=== PATIENT | female | born 1965 | race Caucasian/White ===

== ENCOUNTER 2016-04-17 14:14 | Emergency (ER) | payer MEDICAID ==
[~2016-04-17] VITALS: Wt 86.4 kg
[~2016-04-17 14:14] MED LIST: ALBU8.5H3 INH; IBUP-1542 PO; MTF1000T PO; PRED20TA PO
--- NOTE | 2016-04-17 15:39 | RADRPT ---
PROCEDURE: XR Chest. CLINICAL INDICATION: Cough TECHNIQUE: Chest PA. COMPARISON: 03/02/2016 FINDINGS: The mediastinal structures are unremarkable. The heart is normal in size and configuration. The pu lmonary vascularity is normal. The lung martínez are unremarkable. No consolidation is identified. The pleural spaces are unremarkable. The axial skeleton is unremarkable. IMPRESSION: No active intrathoracic disease. RPTAT: HGDB .Rich Pal MD, MD Date Time Electronically viewed and signed by .Rich Pal MD, on 04/17/2016 15:39 .B/
--- NOTE | 2016-04-17 15:44 | ERD ---
ER Documentation Chief Complaint Date/Time DATE: 04/17/16 TIME: 15:20 Chief Complaint HPI This patient is a 50-year-old female with a history of diabetes, hypertension, and asthma presenting to the emergency department for cough which is been ongoing intermittently for 4 days. She states the cough is worse at night. She also reports mid bilateral back pain every time she coughs. She denies any fevers, chills, nausea, vomiting, diarrhea, urinary symptoms or other symptoms at this time. There are no other alleviating or exacerbating factors at this time. ROS All systems reviewed and are negative except as per history of present illness. Medications Home Meds Active Scripts Benzonatate* (Benzonatate*) 100 Mg Capsule, 100 MG PO TID Y for COUGH for 20 Days, CAP Prov:MURALI BURTON PA-C 04/17/16 Albuterol Sulfate* (Ventolin HFA*) 18 Gm Hfa.aer.ad, 2 PUFF INHALATION Q4H, #1 INHALER Prov:MURALI BURTON PA-C 04/17/16 Prednisone* (Prednisone*) 20 Mg Tab, 40 MG PO DAILY for 5 Days, #10 TAB Prov:MURALI BURTON PA-C 04/17/16 Ibuprofen* (Ibuprofen*) 600 Mg Tablet, 600 MG PO Q8 for PAIN AND/OR INFLAMMATION , #30 TAB Prov:CHIP MCNEILL MD 03/02/16 Prednisone* (Prednisone*) 20 Mg Tab, 40 MG PO DAILY for 4 Days, TAB Prov:CHIP MCNEILL MD 03/02/16 Albuterol Sulfate* (Proair HFA*) 8.5 Gm Hfa.aer.ad, 2 PUFF INH Q6H Y for WHEEZING AND SOB, #1 INHALER Prov:CHIP MCNEILL MD 03/02/16 Reported Medications Metformin* (Glucophage*) 1,000 Mg Tablet, 1000 MG PO BID, TAB 11/30/14 Allergies Allergies: Coded Allergies: No Known Allergy (Unverified , 03/02/16) PMhx/Soc History of Surgery: Yes ( ) Anesthesia Reaction: No Hx Neurological Disorder: No Hx Respiratory Disorders: Yes (ASTHMA ) Hx Cardiac Disorders: Yes (HTN, CHOLESTEROL) Hx Psychiatric Problems: No Hx Miscellaneous Medical Probl: Yes (DIABETES ) Hx Alcohol Use: No Hx Substance Use: No Hx Tobacco Use: No Smoking Status: Never smoker FmHx Noncontributory for chief complaint Physical Exam Vitals Vital Signs Date Time Temp Pulse Resp B/P Pulse Ox O2 Delivery O2 Flow Rate FiO2 04/17/16 14:19 98.4 103 20 182/88 97 Physical Exam INITIAL VITAL SIGNS: Reviewed by me. GENERAL: Alert and interactive. No acute distress. HEAD: Head is normocephalic and atraumatic. EYES: EOMI. No scleral icterus. No conjunctival injection. ENT: Moist mucosa. NECK: Supple. Full range of motion. BACK: There is no CVA tenderness or midline tenderness to palpation RESPIRATORY: Shallow inspiratory effort. Mild inspiratory wheezing in bilateral upper lung martínez. There are no crackles or rhonchi noted. CV: Regular rate and rhythm. Normal S1 S2. No S3 or S4. No murmurs. ABDOMEN: Obese, soft, non-distended, non-tender. No guarding. No rebound. No masses. EXTREMITIES: No deformity. SKIN: Warm and dry. NEUROLOGIC: Alert and oriented x 4. Speech is normal. Moves all extremities equally. No motor or sensory deficits noted. Procedures/MDM PROCEDURE: XR Chest. CLINICAL INDICATION: Cough TECHNIQUE: Chest PA. COMPARISON: 03/02/2016 FINDINGS: The mediastinal structures are unremarkable. The heart is normal in size and configuration. The pulmonary vascularity is normal. The lung martínez are unremarkable. No consolidation is identified. The pleural spaces are unremarkable. The axial skeleton is unremarkable. IMPRESSION: No active intrathoracic disease. MDM: 50-year-old female presenting to the emergency department for cough for 4 days. Additionally she reports a pain in her mid back bilaterally when taking a deep breath. I have ordered a chest x-ray which shows no active intrathoracic disease. I believe the patient's symptoms are consistent with acute viral syndrome as well as asthma exacerbation. I believe it is reasonable to prescribe a short course of corticosteroids for the asthma flare. The patient will also be treated with a refill of her albuterol inhaler. The patient's blood pressure was slightly elevated in the department, which was most likely due to her pain, but she was additionally advised to follow up with her PMD for better management of this issue. The patient is in agreement with the diagnosis and the plan. Her questions and concerns of been addressed. Departure Diagnosis: Primary Impression: Cough Additional Impression: Asthma exacerbation Condition: Stable Patient Instructions: Cough, Chronic, Uncertain Cause, (Adult) Additional Instructions: No mas mejor en 2-3 ross, regresar. Mas peor en 24 horas, regresear rapidamente. Ir a doctor primario in 5-7 ross. Usar instrucciones cuando marisabel medicamento. MURALI BURTON PA-C Apr 17, 2016 15:30
[2016-04-17] MEDS ORDERED: PRED20TA PO (15:45)
[2016-04-17] MEDS ORDERED: ALBU18HF INHALATION (15:45)
[2016-04-17] MEDS ORDERED: BENZ-5 PO (15:52)
== END 2016-04-17 15:55 | disposition home or self-care (01) ==
LOC: FTE 14:14
DX: R05 Cough (principal); J45.901 Unspecified asthma with (acute) exacerbation; E11.9 Type 2 diabetes mellitus without complications; I10 Essential (primary) hypertension; Z79.84 Long term (current) use of oral hypoglycemic drugs
CPT/HCPCS: 71010

== ENCOUNTER 2016-05-05 10:45 | Emergency (ER) | payer MEDICAID ==
[~2016-05-05] VITALS: Wt 104.0 kg
[~2016-05-05 10:45] MED LIST changes: +ALBU18HF INHALATION; +BENZ-5 PO
[2016-05-05 10:50] VITALS: Wt 104.0 kg
[2016-05-05] MEDS ORDERED: ALBUTEROL 0.5% (NEB) 2.5 MG/0.5 ML AMP HHN STA (12:26)
[2016-05-05] MEDS ORDERED: IPRATROPIUM (NEB) 0.5 MG/2.5 ML AMP HHN ONE (12:30)
[2016-05-05] MEDS ORDERED: DEXAMETHASONE 10 MG/ML 1 ML INJ PO ONE (12:30)
[2016-05-05] MEDS ORDERED: AZIT250T94 PO (13:36)
[2016-05-05] MEDS ORDERED: MED4DP PO (13:36)
[2016-05-05] MEDS ORDERED: D-ME473S18 PO (13:36)
[2016-05-05] MEDS ORDERED: ALBU8.5H3 INH (13:37)
[2016-05-05 13:55] VITALS: BP 152/78; PULSE 78; RESP 18
--- NOTE | 2016-05-05 14:03 | ERD ---
ER Documentation Chief Complaint Date/Time DATE: 05/05/16 TIME: 13:59 Chief Complaint COUGH AND STUFFY NOSE FOR 1 WEEK. NO DISTRESS. NO RECENT FEVERS HPI This is a 50-year-old female presents to the ER with the productive cough for the last week. She states she's been wheezing a lot at night, she does not have a history of asthma. Patient denies any fevers or chills. She denies any chest pain however admits to shortness of breath secondary to chest congestion and stuffy nose. She tried taking xjyf-sga-svumtdc medications however they have not worked. There are no sick contacts at home. ROS 12 point review of systems was done, all negative except per HPI. Medications Home Meds Active Scripts Albuterol Sulfate* (Proair HFA*) 8.5 Gm Hfa.aer.ad, 2 PUFF INH Q4, #1 INHALER Prov:ROSSI STOVALL 05/05/16 Dextromethorphan Hb-Promethazine Hcl (Promethazine DM Syrup) 473 Ml Syrup, 10 ML PO Q6H Y for COUGH, #4 OZ Prov:ROSSI STOVALL 05/05/16 Methylprednisolone* (Medrol* DOSE PACK) 4 Mg/Dose-Pack Tab.ds.pk, 4 MG PO . DIRECTED for 6 Days, PACKET Prov:ROSSI STOVALL 05/05/16 Azithromycin* (Zithromax*) 250 Mg Tablet, 250 MG PO .ZPACK DIRECTED, #6 TAB TAKE 500 MG (2 TABS) THE FIRST DAY THEN 250 MG (1 TAB) DAYS 2-5 Prov:ROSSI STOVALL 05/05/16 Benzonatate* (Benzonatate*) 100 Mg Capsule, 100 MG PO TID Y for COUGH for 20 Days, CAP Prov:MURALI BURTON PA-C 04/17/16 Albuterol Sulfate* (Ventolin HFA*) 18 Gm Hfa.aer.ad, 2 PUFF INHALATION Q4H, #1 INHALER Prov:MURALI BURTON PA-C 04/17/16 Prednisone* (Prednisone*) 20 Mg Tab, 40 MG PO DAILY for 5 Days, #10 TAB Prov:MURALI BURTON PA-C 04/17/16 Ibuprofen* (Ibuprofen*) 600 Mg Tablet, 600 MG PO Q8 for PAIN AND/OR INFLAMMATION , #30 TAB Prov:CHIP MCNEILL MD 03/02/16 Prednisone* (Prednisone*) 20 Mg Tab, 40 MG PO DAILY for 4 Days, TAB Prov:CHIP MCNEILL MD 03/02/16 Albuterol Sulfate* (Proair HFA*) 8.5 Gm Hfa.aer.ad, 2 PUFF INH Q6H Y for WHEEZING AND SOB, #1 INHALER Prov:CHIP MCNEILL MD 03/02/16 Reported Medications Metformin* (Glucophage*) 1,000 Mg Tablet, 1000 MG PO BID, TAB 11/30/14 Allergies Allergies: Coded Allergies: No Known Allergy (Unverified , 03/02/16) PMhx/Soc History of Surgery: Yes ( ) Anesthesia Reaction: No Hx Neurological Disorder: No Hx Respiratory Disorders: Yes (ASTHMA ) Hx Cardiac Disorders: Yes (HTN, CHOLESTEROL) Hx Psychiatric Problems: No Hx Miscellaneous Medical Probl: Yes (DIABETES ) Hx Alcohol Use: No Hx Substance Use: No Hx Tobacco Use: No Smoking Status: Never smoker Physical Exam Vitals Vital Signs Date Time Temp Pulse Resp B/P Pulse Ox O2 Delivery O2 Flow Rate FiO2 05/05/16 13:55 78 18 152/78 98 Room Air 05/05/16 12:42 69 20 97 21 05/05/16 10:50 98.9 100 22 173/88 97 Physical Exam GENERAL: The patient is well-developed, well-nourished, in no acute distress. NECK: Cervical spine is non tender with no step off. Supple, no nuchal rigidity HEENT: Atraumatic. Pupils equal, round and reactive to light. Extraocular muscles are grossly intact. Conjunctivae pink, no discharge. Bilateral tympanic membranes are clear with no evidence of erythema, effusion or dulling of the light reflex. Tonsilar erythema with no exudates or uvular deviation. Clear rhinorrhea. RESPIRATORY: Expiratory wheezes in all lung martínez. No rales no rhonchi no crackles. HEART: Regular rate and rhythm. No murmurs, clicks, rubs or gallops. EXTREMITIES: No clubbing or cyanosis. Full range of motion. Grossly neurovascularly intact. NEUROLOGIC: Alert and oriented. Cranial nerves II through XII are intact. SKIN: There is no rash. The skin is warm and dry. Results 24 hrs Current Medications Medications (Trade) Dose Ordered Sig/Molly Route PRN Reason Start Time Stop Time Status Last Admin Dose Admin Albuterol (Proventil 0.5% (Neb)) 5 mg ONCE STAT HHN 05/05/16 12:26 05/05/16 12:28 DC 05/05/16 12:39 Ipratropium [place] (Atrovent 0.02% (Neb)) 0.5 mg ONCE ONCE HHN 05/05/16 12:30 05/05/16 12:31 DC 05/05/16 12:39 Dexamethasone (Decadron) 10 mg ONCE ONCE PO 05/05/16 12:30 05/05/16 12:31 DC 05/05/16 13:20 Procedures/MDM Differential diagnosis includes but is not limited to; Viral URI, allergic rhinitis, bronchitis, pertussis,pneumonia. Patient will be treated for bacterial bronchitis and will be given antibiotics. Patient's wheezing was resolved after nebulizing treatment and she felt significantly better. Clinical suspicion for pneumonia is low as patient appears well, is not hypoxic or in any respiratory distress. Additionally, patients physical examination is benign. Plan was discussed with patient they understand and agree. Patient needs to follow up with PCP in 1-2 days or return to ER sooner if symptoms worsen. Departure Diagnosis: Primary Impression: Bronchitis Condition: Stable Patient Instructions: Bronchitis With Wheezing (Adult) Additional Instructions: Llame al doctor MAANA y ovi joaquina BUDDY PARA DENTRO DE 1-2 AGUIRRE.Dgale a la secretaria que nosotros le instruimos hacer esta buddy.Avise o llame si conde condicin se empeora antes de la buddy. Regresa aqui si peor o no mejor. ROSSI STOVALL May 05, 2016 14:03
== END 2016-05-05 13:56 | disposition home or self-care (01) ==
LOC: FTE 10:45
DX: J20.9 Acute bronchitis, unspecified (principal); J45.909 Unspecified asthma, uncomplicated; I10 Essential (primary) hypertension; E11.9 Type 2 diabetes mellitus without complications; Z79.84 Long term (current) use of oral hypoglycemic drugs
CPT/HCPCS: 94664; J1100; Z7502; Z7610

== ENCOUNTER 2016-09-18 15:40 | Emergency (ER) | payer MEDICAID ==
[~2016-09-18] VITALS: Ht 157.5 cm; Wt 110.0 kg
[~2016-09-18 15:40] MED LIST changes: +AZIT250T94 PO; +D-ME473S18 PO; +MED4DP PO
[2016-09-18 15:43] VITALS: Ht 157.5 cm; Wt 110.0 kg
[2016-09-18 16:33] VITALS: BP 181/105; PULSE 110; RESP 20; TEMP 98.2
[2016-09-18] MEDS ORDERED: ALBU18HF INHALATION (16:33)
[2016-09-18] MEDS ORDERED: HYDR-3652 PO (16:33)
[2016-09-18] MEDS ORDERED: PRED20TA PO (16:33)
--- NOTE | 2016-09-18 16:37 | ERD ---
ER Documentation Chief Complaint Date/Time DATE: 09/18/16 TIME: 16:35 Chief Complaint Complains of SOB hx of Asthma HPI 50-year-old female history of asthma. home care consultant use. The patient presents with several days of cough that is worse at night is dry and nonproductive. She states this feels like her asthma. She denies any fevers or chills, no chest pain, no significant shortness of breath. Blood pressure noted to be elevated though patient describes compliance with her blood pressure medication. Again no chest pain no headache. ROS All systems reviewed and are negative except as per history of present illness. Medications Home Meds Active Scripts Hydrocodone Bit/Homatrop Me-Br ([place] 5-1.5 mg Tablet) 1 Each Tablet, 1 EACH PO TID Y for cough/pain, #10 TAB Prov:INOCENTE SNELL MD 09/18/16 Albuterol Sulfate* (Ventolin HFA*) 18 Gm Hfa.aer.ad, 2 PUFF INHALATION Q4H, #1 INHALER Prov:INOCENTE SNELL MD 09/18/16 Prednisone* (Prednisone*) 20 Mg Tab, 40 MG PO DAILY for 5 Days, TAB Prov:INOCENTE SNELL MD 09/18/16 Albuterol Sulfate* (Proair HFA*) 8.5 Gm Hfa.aer.ad, 2 PUFF INH Q4, #1 INHALER Prov:ROSSI STOVALL 05/05/16 Dextromethorphan Hb-Promethazine Hcl (Promethazine DM Syrup) 473 Ml Syrup, 10 ML PO Q6H Y for COUGH, #4 OZ Prov:ROSSI STOVALL 05/05/16 Methylprednisolone* (Medrol* DOSE PACK) 4 Mg/Dose-Pack Tab.ds.pk, 4 MG PO . DIRECTED for 6 Days, PACKET Prov:ROSSI STOVALL 05/05/16 Azithromycin* (Zithromax*) 250 Mg Tablet, 250 MG PO .ZPACK DIRECTED, #6 TAB TAKE 500 MG (2 TABS) THE FIRST DAY THEN 250 MG (1 TAB) DAYS 2-5 Prov:ROSSI STOVALL 05/05/16 Benzonatate* (Benzonatate*) 100 Mg Capsule, 100 MG PO TID Y for COUGH for 20 Days, CAP Prov:MURALI BURTON PA-C 04/17/16 Albuterol Sulfate* (Ventolin HFA*) 18 Gm Hfa.aer.ad, 2 PUFF INHALATION Q4H, #1 INHALER Prov:MURALI BURTON PA-C 04/17/16 Prednisone* (Prednisone*) 20 Mg Tab, 40 MG PO DAILY for 5 Days, #10 TAB Prov:MURALI BURTON PA-C 04/17/16 Ibuprofen* (Ibuprofen*) 600 Mg Tablet, 600 MG PO Q8 for PAIN AND/OR INFLAMMATION , #30 TAB Prov:CHIP MCNEILL MD 03/02/16 Prednisone* (Prednisone*) 20 Mg Tab, 40 MG PO DAILY for 4 Days, TAB Prov:CHIP MCNEILL MD 03/02/16 Albuterol Sulfate* (Proair HFA*) 8.5 Gm Hfa.aer.ad, 2 PUFF INH Q6H Y for WHEEZING AND SOB, #1 INHALER Prov:CHIP MCNEILL MD 03/02/16 Reported Medications Metformin* (Glucophage*) 1,000 Mg Tablet, 1000 MG PO BID, TAB 11/30/14 Allergies Allergies: Coded Allergies: No Known Allergy (Unverified , 03/02/16) PMhx/Soc History of Surgery: Yes ( ) Anesthesia Reaction: No Hx Neurological Disorder: No Hx Respiratory Disorders: Yes (ASTHMA ) Hx Cardiac Disorders: Yes (HTN, CHOLESTEROL) Hx Psychiatric Problems: No Hx Miscellaneous Medical Probl: Yes (DIABETES ) Hx Alcohol Use: No Hx Substance Use: No Hx Tobacco Use: No Smoking Status: Never smoker FmHx Family History: No diabetes Physical Exam Vitals Vital Signs Date Time Temp Pulse Resp B/P Pulse Ox O2 Delivery O2 Flow Rate FiO2 09/18/16 16:33 98.2 110 20 181/105 98 Room Air 09/18/16 15:43 115 20 201/106 97 Physical Exam General: Well developed, well nourished, no acute distress Head: Normocephalic, atraumatic. Eyes: Pupils equally reactive, EOM intact ENT: Moist mucous membranes Neck: Supple, no lymphadenopathy Respiratory: Lungs clear bilaterally, no distress Cardiovascular: RRR, no murmurs, rubs, or gallops Abdominal: Soft, non-tender, non-distended, no peritoneal signs : Deferred MSK: No edema, no unilateral swelling, 5/5 strength Neurologic: Alert and oriented, moving all extremities, normal speech, no focal weakness, no cerebellar signs Skin: No rash Psych: Normal mood Procedures/MDM The patient's clinical presentation is very consistent with an acute viral syndrome with mild asthma exacerbation. The patient will benefit from a short course of steroids, inhaler. No indication for chest x-ray or antibiotics. Patient's blood pressure was elevated (>120/80) but appears stable without evidence of hypertensive emergency or urgency. The patient was counseled about the risks of hypertension and urged to pursue outpatient monitoring and therapy within a week with their primary care physician. Blood pressure improved without intervention. The patient does not exhibit any clinical signs or symptoms concerning for serious bacterial infection or systemic illness. Based on history and clinical exam findings the patient does not appear to have evidence of pneumonia, strep pharyngitis, urinary tract infection, bacteremia, sepsis, or meningitis. For these reasons I do not believe it is necessary to obtain laboratory testing or diagnostic imaging. I believe it would be appropriate for symptom control, and close outpatient primary care follow-up. We discussed follow up with the patient's primary care doctor within 24 to 48 hours as needed. We also discussed return to the emergency room for worsening symptoms or worsening condition. Discharge Medications: Albuterol, prednisone, Hycodan We discussed the use of narcotics including avoidance of operating heavy machinery and driving as well as its addictive properties. Departure Diagnosis: Primary Impression: Asthma exacerbation Additional Impressions: Hypertension Hypertension type: essential hypertension Qualified Code: I10 - Essential hypertension Viral URI with cough Condition: Stable Patient Instructions: High Blood Pressure (Hypertension), Asthma, Acute (Adult) Referrals[facility] Usted se hurtado hecho un examen mdico de control que le indica que no est en joaquina condicin que requiera tratamiento urgente en el Departamento de Emergencia. Un estudio ms profundo y el tratamiento de conde condicin pueden esperar sin ningn riesgo hasta que usted sea atendida/o en el consultorio de conde mdico o joaquina cl yovana. Es responsabilidad suya arreglar joaquina buddy para el seguimiento del matt. MANEJO DE CONDICIONES NO URGENTES EN EL FUTURO 1) Si usted tiene un mdico de atencin primaria: Usted debera llamar a conde mdico de atencin primaria antes de venir al departamento de emergencia. Despus de las horas de consultorio, conde doctor o conde asociado/a est disponible por telfono. El mdico o enfermero de ladonna en el servicio telefnico puede asesorarle por adán medio para atender el problema, o matt contrario se puede programar joaquina buddy. 2) Si usted no tiene un mdico de atencin primaria: Llame al mdico o clnica de referencia que aparece abajo vera las horas de consultorio para hacer joaquina buddy para que le vean. CLINICAS: [place] [id number] [phone] [facility] [phone] [facility] [phone] [address] [facility]. [facility] [phone] [facility]. [place] [id number] [phone] [facility]. [phone] [address] [facility] () [place] se hurtado hecho un examen mdico de control que le indica que no est en joaquina condicin que requiera tratamiento urgente en el Departamento de Emergencia. Un estudio ms profundo y el tratamiento de conde condicin pueden esperar sin ningn riesgo hasta que usted sea atendida/o en el consultorio de conde mdico o joaquina cl yovana. Es responsabilidad suya arreglar joaquina buddy para el seguimiento del matt. MANEJO DE CONDICIONES NO URGENTES EN EL FUTURO 1) Si usted tiene un mdico de atencin primaria: Usted debera llamar a conde mdico de atencin primaria antes de venir al departamento de emergencia. Despus de las horas de consultorio, conde doctor o conde asociado/a est disponible por telfono. El mdico o enfermero de ladonna en el servicio telefnico puede asesorarle por adán medio para atender el problema, o matt contrario se puede programar joaquina buddy. 2) Si usted no tiene un mdico de atencin primaria: Llame al mdico o condado institucions de referencia que aparece abajo vera las horas de consultorio para hacer joaquina buddy para que le vean. SI USTED NO PUEDE PAGAR PARA LUCERO UN MEDICO puede ir a: [facility] [address] [place] [address] [facility] [address] [place] [address] LOCATED WITHIN [facility] [address] [place] [address] [address]A [facility] [address] [place], [place] [id number] Additional Instructions: Llame al doctor nombrado abajo (Referral Sources) MAANA y ovi joaquina BUDDY PARA DENTRO DE JOAQUINA SEMANA. Dgale a la secretaria que nosotros le instruimos hacer esta buddy.Avise o llame si conde condicin se empeora antes de la buddy. INOCENTE SNELL MD Sep 18, 2016 16:37
== END 2016-09-18 16:38 | disposition home or self-care (01) ==
LOC: E/R 15:40
DX: J45.901 Unspecified asthma with (acute) exacerbation (principal); I10 Essential (primary) hypertension; J06.9 Acute upper respiratory infection, unspecified; R05 Cough; E11.9 Type 2 diabetes mellitus without complications; Z79.84 Long term (current) use of oral hypoglycemic drugs
CPT/HCPCS: 99284

== ENCOUNTER 2016-11-29 11:21 | Emergency (ER) | payer MEDICAID ==
[~2016-11-29] VITALS: Wt 84.1 kg
[~2016-11-29 11:21] MED LIST changes: +HYDR-3652 PO
[2016-11-29] MEDS ORDERED: IPRATROPIUM (NEB) 0.5 MG/2.5 ML AMP NEB STA (11:58)
[2016-11-29] MEDS ORDERED: predniSONE 20 MG TAB PO STA (11:58)
[2016-11-29] MEDS ORDERED: ALBUTEROL 0.083% (NEB) 2.5 MG/3 ML AMP NEB STA (11:58)
[2016-11-29] MEDS ORDERED: ALBUTEROL 0.083% (NEB) 2.5 MG/3 ML AMP HHN STA (13:24)
[2016-11-29] MEDS ORDERED: IPRATROPIUM (NEB) 0.5 MG/2.5 ML AMP HHN ONE (13:30)
[2016-11-29] MEDS ORDERED: ALBU8.5H3 INH (14:52)
[2016-11-29] MEDS ORDERED: ADV25050 INHALATION (14:53)
--- NOTE | 2016-11-29 15:01 | ERD ---
ER Documentation Chief Complaint Date/Time DATE: 11/29/16 TIME: 14:54 Chief Complaint asthma flare up x3 days, inhaler not helping HPI This 51-year-old female who presents emergency department today complaining of asthma exacerbation for the past 3 days. Patient states that she has a cough that is worse at night. States that she uses her inhaler and it is not helping at this time. Denies any fevers or chills. Denies any recent travel. ROS All systems reviewed and are negative except as per history of present illness. Medications Home Meds Active Scripts Salmeterol Xinaf/Fluticasone* (Advair*) 250-50 Diskus Inhaler, 1 INH INHALATION BID, #1 INHALER Prov:YURIY MARQUIS PA-C 11/29/16 Albuterol Sulfate* (Proair HFA*) 8.5 Gm Hfa.aer.ad, 2 PUFF INH Q4, #1 INHALER Prov:YURIY MARQUIS PA-C 11/29/16 Hydrocodone Bit/Homatrop Me-Br (Tussigon 5-1.5 mg Tablet) 1 Each Tablet, 1 EACH PO TID Y for cough/pain, #10 TAB Prov:INOCENTE SNELL MD 09/18/16 Albuterol Sulfate* (Ventolin HFA*) 18 Gm Hfa.aer.ad, 2 PUFF INHALATION Q4H, #1 INHALER Prov:INOCENTE SNELL MD 09/18/16 Prednisone* (Prednisone*) 20 Mg Tab, 40 MG PO DAILY for 5 Days, TAB Prov:INOCENTE SNELL MD 09/18/16 Albuterol Sulfate* (Proair HFA*) 8.5 Gm Hfa.aer.ad, 2 PUFF INH Q4, #1 INHALER Prov:ROSSI STOVALL 05/05/16 Dextromethorphan Hb-Promethazine Hcl (Promethazine DM Syrup) 473 Ml Syrup, 10 ML PO Q6H Y for COUGH, #4 OZ Prov:ROSSI STOVALL 05/05/16 Methylprednisolone* (Medrol* DOSE PACK) 4 Mg/Dose-Pack Tab.ds.pk, 4 MG PO . DIRECTED for 6 Days, PACKET Prov:ROSSI STOVALL 05/05/16 Azithromycin* (Zithromax*) 250 Mg Tablet, 250 MG PO .YessicaPACK DIRECTED, #6 TAB TAKE 500 MG (2 TABS) THE FIRST DAY THEN 250 MG (1 TAB) DAYS 2-5 Prov:ROSSI STOVALL 05/05/16 Benzonatate* (Benzonatate*) 100 Mg Capsule, 100 MG PO TID Y for COUGH for 20 Days, CAP Prov:MURALI BURTON PA-C 04/17/16 Albuterol Sulfate* (Ventolin HFA*) 18 Gm Hfa.aer.ad, 2 PUFF INHALATION Q4H, #1 INHALER Prov:MURALI BURTON PA-C 04/17/16 Prednisone* (Prednisone*) 20 Mg Tab, 40 MG PO DAILY for 5 Days, #10 TAB Prov:MURALI BURTON PA-C 04/17/16 Ibuprofen* (Ibuprofen*) 600 Mg Tablet, 600 MG PO Q8 for PAIN AND/OR INFLAMMATION , #30 TAB Prov:CHIP MCNEILL MD 03/02/16 Prednisone* (Prednisone*) 20 Mg Tab, 40 MG PO DAILY for 4 Days, TAB Prov:CHIP MCNEILL MD 03/02/16 Albuterol Sulfate* (Proair HFA*) 8.5 Gm Hfa.aer.ad, 2 PUFF INH Q6H Y for WHEEZING AND SOB, #1 INHALER Prov:CHIP MCNEILL MD 03/02/16 Reported Medications Metformin* (Glucophage*) 1,000 Mg Tablet, 1000 MG PO BID, TAB 11/30/14 Allergies Allergies: Coded Allergies: No Known Allergy (Unverified , 03/02/16) PMhx/Soc History of Surgery: Yes ( ) Anesthesia Reaction: No Hx Neurological Disorder: No Hx Respiratory Disorders: Yes (ASTHMA ) Hx Cardiac Disorders: Yes (HTN, CHOLESTEROL) Hx Psychiatric Problems: No Hx Miscellaneous Medical Probl: Yes (DIABETES ) Hx Alcohol Use: No Hx Substance Use: No Hx Tobacco Use: No Physical Exam Vitals Vital Signs Date Time Temp Pulse Resp B/P Pulse Ox O2 Delivery O2 Flow Rate FiO2 11/29/16 13:43 83 19 96 21 11/29/16 12:24 77 19 96 21 11/29/16 11:35 97.9 20 141/69 97 Physical Exam Const: obese, NAD, talking in full sentences Head: Atraumatic Eyes: Normal Conjunctiva ENT: Normal External Ears, Nose and Mouth. Neck: Full range of motion..~ No meningismus. Resp: Expiratory wheezing bilaterally in all lung martínez Cardio: Regular rate and rhythm, no murmurs Abd: Soft, non tender, non distended. Normal bowel sounds Skin: No petechiae or rashes Back: No midline or flank tenderness Ext: No cyanosis, or edema Neur: Awake and alert Psych: Normal Mood and Affect Results 24 hrs Current Medications Medications (Trade) Dose Ordered Sig/Molly Route PRN Reason Start Time Stop Time Status Last Admin Dose Admin Albuterol (Proventil 0.083% (Neb)) 5 mg ONCE STAT NEB 11/29/16 11:58 11/29/16 12:00 DC 11/29/16 12:23 Ipratropium [place] (Atrovent 0.02% (Neb)) 0.5 mg ONCE STAT NEB 11/29/16 11:58 11/29/16 12:00 DC 11/29/16 12:23 Prednisone (Prednisone) 60 mg ONCE STAT PO 11/29/16 11:58 11/29/16 12:00 DC 11/29/16 12:32 Albuterol (Proventil 0.083% (Neb)) 5 mg ONCE STAT HHN 11/29/16 13:24 11/29/16 13:25 DC 11/29/16 13:41 Ipratropium [place] (Atrovent 0.02% (Neb)) 0.5 mg ONCE ONCE HHN 11/29/16 13:30 11/29/16 13:31 DC 11/29/16 13:41 Procedures/MDM This a 51-year-old female presents to the emergency department today complaining of asthma exacerbation a cough that is worse at night for the past 3 days. Per review of patient's medical records patient has had multiple visits to the emergency room for asthma exacerbation.Patient was last seen here approximately 2 mos ago On physical exam Patient had expiratory wheezing Bilaterally in all lung martínez. patient's oxygen saturation was 97%. She is afebrile and otherwise well -appearingAnd I do not feel that she requires a chest x-ray at this time. Low suspicion for pneumonia, PE, abscess, pleural effusion, pneumothorax. Patient was given 2 breathing treatments here in the emergency department as well as prednisone and symptoms improved. Patient symptoms at this time is consistent with acute asthma exacerbation. I have explained to the patient that she is to follow-up with her primary care doctor for referral to pulmonology specialist given the amount of time that she is seen here in the emergency department for her asthma exacerbations. Patient was also given a list of referral information for pulmonology specialist. I discussed the patient with Dr. Richardson and he feels that the patient may benefit from a prescription of Advair. Patient was given this prescription for Advair as well as her pro-air inhaler. At this time the patient is stable for discharge and outpatient management. Patient should follow up with their PCP in the next 1-2 days. They may return to the emergency department sooner for any persistent or worsening of symptoms. Patient understood and agreed with the plan. Discussed the patient with Dr. Richardson and he is in agreement with the plan. Departure Diagnosis: Primary Impression: Asthma with acute exacerbation Asthma severity: unspecified severity Qualified Code: J45.901 - Asthma with acute exacerbation, unspecified asthma severity Condition: Fair Patient Instructions: Asthma, Acute (Adult) Referrals: your PCP TREVER LANIER MD,HECTOR GARCIA,CARLOS SOUZA,FROYLAN Romo MD MAYTE,MURALI CORNEJO,CHIP DE LA TORRE MD,PADMINI BECKER,KURTIS WIGGINS,TEDDY JONES,IESHA SCOTT,LEA HALL,MANOLO Balderas MD, [facility] Additional Instructions: Llame al doctor MAANA y ovi joaquina BUDDY PARA DENTRO DE 1-2 AGUIRRE.Dgale a la secretaria que nosotros le instruimos hacer esta buddy.Avise o llame si conde condicin se empeora antes de la buddy. Regresa aqui si peor o no mejor. Make an appoint with your primary care doctor for referral to pulmonology specialist Take medications as prescribed YURIY MARQUIS PA-C Nov 29, 2016 15:01
[2016-11-29 15:10] VITALS: BP 149/76; PULSE 111; RESP 20; TEMP 98.3
== END 2016-11-29 15:20 | disposition home or self-care (01) ==
LOC: FTE 11:21
DX: J45.901 Unspecified asthma with (acute) exacerbation (principal); I10 Essential (primary) hypertension; E11.9 Type 2 diabetes mellitus without complications; Z79.84 Long term (current) use of oral hypoglycemic drugs
CPT/HCPCS: 94640; 94664; J7512; Z7502; Z7610

== ENCOUNTER 2017-01-11 14:03 | Emergency (ER) | payer MEDICAID ==
[~2017-01-11] VITALS: Ht 147.3 cm; Wt 111.5 kg
[~2017-01-11 14:03] MED LIST changes: +ADV25050 INHALATION
[2017-01-11 14:08] VITALS: Ht 147.3 cm; Wt 111.5 kg
[2017-01-11] MEDS ORDERED: predniSONE 20 MG TAB PO STA (16:03)
[2017-01-11] MEDS ORDERED: IPRATROPIUM (NEB) 0.5 MG/2.5 ML AMP NEB STA (16:03)
[2017-01-11] MEDS ORDERED: ALBUTEROL 0.5% (NEB) 2.5 MG/0.5 ML AMP INH STA (16:03)
[2017-01-11] MEDS ORDERED: PRED20TA PO (17:23)
[2017-01-11] MEDS ORDERED: ALBU8.5H3 INH (17:23)
--- NOTE | 2017-01-11 17:30 | ERD ---
ER Documentation Chief Complaint Date/Time DATE: 01/11/17 TIME: 17:25 Chief Complaint sob cough x 4 day HPI Patient is a 51-year-old female with past medical history of asthma, hypertension, diabetes, hyperlipidemia presents emergency department for concerns of a cough and shortness of breath 4 days. Patient states her cough is dry in nature. Patient states her cough is worse at night. Patient reports using her albuterol inhaler with minimal alleviation of symptoms. Patient does admit to wheezing. Patient denies any pain, left upper extremity pain, diaphoresis, nausea, vomiting or loss of consciousness. Patient denies any sick contacts. No recent travel. ROS All systems reviewed and are negative except as per history of present illness. Medications Home Meds Active Scripts Albuterol Sulfate* (Proair HFA*) 8.5 Gm Hfa.aer.ad, 2 PUFF INH Q4, #1 INHALER Prov:EMILIANO CARRILLO PA-C 01/11/17 Prednisone* (Prednisone*) 20 Mg Tab, 60 MG PO DAILY for 4 Days, TAB Prov:EMILIANO CARRILLO PA-C 01/11/17 Salmeterol Xinaf/Fluticasone* (Advair*) 250-50 Diskus Inhaler, 1 INH INHALATION BID, #1 INHALER Prov:YURIY MARQUIS PA-C 11/29/16 Albuterol Sulfate* (Proair HFA*) 8.5 Gm Hfa.aer.ad, 2 PUFF INH Q4, #1 INHALER Prov:YURIY MARQUIS PA-C 11/29/16 Hydrocodone Bit/Homatrop Me-Br (Tussigon 5-1.5 mg Tablet) 1 Each Tablet, 1 EACH PO TID Y for cough/pain, #10 TAB Prov:INOCENTE SNELL MD 09/18/16 Albuterol Sulfate* (Ventolin HFA*) 18 Gm Hfa.aer.ad, 2 PUFF INHALATION Q4H, #1 INHALER Prov:INOCENTE SNELL MD 09/18/16 Prednisone* (Prednisone*) 20 Mg Tab, 40 MG PO DAILY for 5 Days, TAB Prov:INOCENTE SNELL MD 09/18/16 Albuterol Sulfate* (Proair HFA*) 8.5 Gm Hfa.aer.ad, 2 PUFF INH Q4, #1 INHALER Prov:ROSSI STOVALL Jensen 05/05/16 Dextromethorphan Hb-Promethazine Hcl (Promethazine DM Syrup) 473 Ml Syrup, 10 ML PO Q6H Y for COUGH, #4 OZ Prov:WILMANROSSI Styles 05/05/16 Methylprednisolone* (Medrol* DOSE PACK) 4 Mg/Dose-Pack Tab.ds.pk, 4 MG PO . DIRECTED for 6 Days, PACKET Prov:WILMANROSSI Styles 05/05/16 Azithromycin* (Zithromax*) 250 Mg Tablet, 250 MG PO .ZPACK DIRECTED, #6 TAB TAKE 500 MG (2 TABS) THE FIRST DAY THEN 250 MG (1 TAB) DAYS 2-5 Prov:WILMANROSSI 05/05/16 Benzonatate* (Benzonatate*) 100 Mg Capsule, 100 MG PO TID Y for COUGH for 20 Days, CAP Prov:MURALI BURTON PA-C 04/17/16 Albuterol Sulfate* (Ventolin HFA*) 18 Gm Hfa.aer.ad, 2 PUFF INHALATION Q4H, #1 INHALER Prov:MURALI BURTON PA-C 04/17/16 Prednisone* (Prednisone*) 20 Mg Tab, 40 MG PO DAILY for 5 Days, #10 TAB Prov:MURALI BURTON PA-C 04/17/16 Ibuprofen* (Ibuprofen*) 600 Mg Tablet, 600 MG PO Q8 for PAIN AND/OR INFLAMMATION , #30 TAB Prov:CHIP MCNEILL MD 03/02/16 Prednisone* (Prednisone*) 20 Mg Tab, 40 MG PO DAILY for 4 Days, TAB Prov:CHIP MCNEILL MD 03/02/16 Albuterol Sulfate* (Proair HFA*) 8.5 Gm Hfa.aer.ad, 2 PUFF INH Q6H Y for WHEEZING AND SOB, #1 INHALER Prov:CHIP MCNEILL MD 03/02/16 Reported Medications Metformin* (Glucophage*) 1,000 Mg Tablet, 1000 MG PO BID, TAB 11/30/14 Allergies Allergies: Coded Allergies: No Known Allergy (Unverified , 01/11/17) PMhx/Soc History of Surgery: Yes ( ) Anesthesia Reaction: No Hx Neurological Disorder: No Hx Respiratory Disorders: Yes (ASTHMA ) Hx Cardiac Disorders: Yes (HTN, CHOLESTEROL) Hx Psychiatric Problems: No Hx Miscellaneous Medical Probl: Yes (DIABETES ) Hx Alcohol Use: No Hx Substance Use: No Hx Tobacco Use: No Smoking Status: Never smoker FmHx Family History: diabetes Physical Exam Vitals Vital Signs Date Time Temp Pulse Resp B/P Pulse Ox O2 Delivery O2 Flow Rate FiO2 01/11/17 18:21 98.3 110 22 127/71 96 Room Air 01/11/17 16:31 7 01/11/17 16:16 99 19 95 21 01/11/17 14:08 98.1 109 20 183/89 98 Physical Exam GENERAL: Well-developed, well-nourished female. Appears in no acute distress. Speaking in full sentences. HEAD: Normocephalic, atraumatic. EYES: Pupils are equally reactive bilaterally. EOMs grossly intact. No conjunctival erythema. ENT: Moist mucous membranes. No uvula deviation. No kissing tonsils. NECK: Supple. No meningismus. Normal range of motion of the neck. LUNG: Wheezing noted in bilateral lobes.. No abdominal retractions, no nasal flaring, no tripoding. HEART: Regular rate and rhythm. No murmurs, rubs or gallops. EXTREMITIES: Equal pulses bilaterally. No peripheral clubbing, cyanosis or edema. No unilateral leg swelling. No pitting edema noted bilaterally. NEUROLOGIC: Alert and oriented. Moving all four extremities without any difficulty. Normal speech. Steady gait. SKIN: Normal color. Warm and dry. No rashes or lesions. Results 24 hrs Current Medications Medications (Trade) Dose Ordered Sig/Molly Route PRN Reason Start Time Stop Time Status Last Admin Dose Admin Ipratropium [place] (Atrovent 0.02% (Neb)) 1 mg ONCE STAT NEB 01/11/17 16:03 01/11/17 16:06 DC 01/11/17 16:15 Albuterol (Proventil 0.5% (Neb)) 10 mg ONCE STAT INH 01/11/17 16:03 01/11/17 16:06 DC 01/11/17 16:15 Prednisone (Prednisone) 60 mg ONCE STAT PO 01/11/17 16:03 01/11/17 16:06 DC 01/11/17 16:25 Procedures/MDM ED COURSE: The patient was stable throughout ED course. I kept the patient and/or family informed of laboratory and diagnostic imaging results throughout the ED course. EKG: (taken after Albuterol inhaler) Read by Dr. Mcneill, attending physician. EKG shows normal sinus rhythm at a rate of 112 bpm. No arrhythmias, acute ST elevations or T wave changes were noted. DIAGNOSTIC IMAGING: Read by radiologist. DIAGNOSTIC IMAGING REPORT Patient: [place] : 1965 Age: 51 Sex: F MR #: [id number] DOS: 01/11/17 1605 Ordering MD: EMILIANO CARRILLO PA-C Location: [facility] Room/Bed: PROCEDURE: XR Chest. CLINICAL INDICATION: Cough and shortness of breath. TECHNIQUE: Single frontal view. COMPARISON: 04/17/2016. FINDINGS: The lungs are clear. The heart size is normal. There is no pleural effusion. There is no pneumothorax. IMPRESSION: 1. Normal chest radiograph. 2. No change from 04/17/2016. RPTAT: QQ .Mo Watts MD, MD Date Time Electronically viewed and signed by .Mo Watts MD, MD on 01/11/2017 18:03 .R/ CC: EMILIANO CARRILLO PA-C MEDICATIONS GIVEN: Albuterol, ipratropium, prednisone Patient tolerated medication well with no adverse reactions. Patient reported improvement in pain. MEDICAL DECISION MAKING: This is a 51-year-old female with a history of hypertension, diabetes, hyperlipidemia, asthma presents emergency department for concerns of a cough and shortness of breath 4 days. Vital signs were reviewed. Patient was afebrile. Patient was not hypoxic initial presentation.. ENT exam was normal. Lung exam did reveal some wheezing. Patient was given a breathing treatment and given prednisone here in the emergency department. On examination, patient had improved breath sounds. Chest x-ray was unremarkable. Given these findings , the patient's presentation is most consistent with asthma exacerbation. Low suspicion for ACS, pericarditis, PE, CHF. pneumonia, meningitis, sinusitis, otitis externa, acute otitis media, strep pharyngitis, epiglottitis or peritonsillar abscess. PRESCRIPTIONS: Prednisone, albuterol DISCHARGE: At this time, patient is stable for discharge and outpatient management. Supportive therapies such as OTC throat lozenges, salt water gurgles, popsicles and jello discussed. I have instructed the patient to follow-up with his/her primary care physician in 1-2 days. I have instructed the patient to promptly return to the ER for any new or worsening symptoms including increased pain, swelling, fever, nausea, vomiting, weakness or difficulty breathing. The patient and/or family expressed understanding of and agreement with this plan. All questions were answered. Home care instructions were provided. Disclaimer: Inadvertent spelling and grammatical errors are likely due to EHR/ dictation software use and do not reflect on the overall quality of patient care. Also, please note that the electronic time recorded on this note does not necessarily reflect the actual time of the patient encounter. Patient's blood pressure was elevated (>120/80) but appears stable without evidence of hypertensive emergency, hypertensive urgency or end-organ failure. I had discussion with the patient about the risks of hypertension. I have advised the patient to follow up with his/her primary care physician for outpatient monitoring and treatment for hypertension in 2-3 days. I have instructed the patient to return to the ER for any new or worsening symptoms including chest pain, shortness of breath, headache, blurred vision, confusion, nausea, vomiting or LOC. Departure Diagnosis: Primary Impression: Asthma with acute exacerbation Asthma severity: mild Asthma persistence: unspecified Qualified Code: J45.901 - Mild asthma with acute exacerbation, unspecified whether persistent Condition: Stable Patient Instructions: Asthma Medications Referrals: [facility] YOU HAVE RECEIVED A MEDICAL SCREENING EXAM AND THE RESULTS INDICATE THAT YOU DO NOT HAVE A CONDITION THAT REQUIRES URGENT TREATMENT IN THE EMERGENCY DEPARTMENT. FURTHER EVALUATION AND TREATMENT OF YOUR CONDITION CAN WAIT UNTIL YOU ARE SEEN IN YOUR DOCTORS OFFICE WITHIN THE NEXT 1-2 DAYS. IT IS YOUR RESPONSIBILITY TO MAKE AN APPOINTMENT FOR FOLOW-UP CARE. IF YOU HAVE A PRIMARY DOCTOR --you should call your primary doctor and schedule an appointment IF YOU DO NOT HAVE A PRIMARY DOCTOR YOU CAN CALL OUR PHYSICIAN REFERRAL HOTLINE AT IF YOU CAN NOT AFFORD TO SEE A PHYSICIAN YOU CAN CHOSE FROM THE FOLLOWING [facility] [address] [place] [facility] [address] [facility] [address] [facility] [address] [facility] [address] [facility] [facility] [address] [facility]. [facility] YOU HAVE RECEIVED A MEDICAL SCREENING EXAM AND THE RESULTS INDICATE THAT YOU DO NOT HAVE A CONDITION THAT REQUIRES URGENT TREATMENT IN THE EMERGENCY DEPARTMENT. FURTHER EVALUATION AND TREATMENT OF YOUR CONDITION CAN WAIT UNTIL YOU ARE SEEN IN YOUR DOCTORS OFFICE WITHIN THE NEXT 1-2 DAYS. IT IS YOUR RESPONSIBILITY TO MAKE AN APPOINTMENT FOR FOLOW-UP CARE. IF YOU HAVE A PRIMARY DOCTOR --you should call your primary doctor and schedule and appointment IF YOU DO NOT HAVE A PRIMARY DOCTOR YOU CAN CALL OUR PHYSICIAN REFERRAL HOTLINE AT . IF YOU CAN NOT AFFORD TO SEE A PHYSICIAN YOU CAN CHOSE FROM THE FOLLOWING [facility] [address] [place] [address] [facility] [address] [place], [place] [id number] [place] [address] [address] [place] [address] Additional Instructions: Call your primary care doctor TOMORROW for an appointment during the next 1-2 days.See the doctor sooner or return here if your condition worsens before your appointment time. Return to the emergency department for any new or worsening symptoms including worsening shortness of breath, nausea, vomiting, chest pain or LOC. EMILIANO CARRILLO PA-C Jan 11, 2017 17:30
--- NOTE | 2017-01-11 18:03 | RADRPT ---
PROCEDURE: XR Chest. CLINICAL INDICATION: Cough and shortness of breath. TECHNIQUE: Single frontal view. COMPARISON: 04/17/2016. FINDINGS: The lungs are clear. The heart size is normal. There is no pleural effusion. There is no pneumothorax. IMPRESSION: 1. Normal chest radiograph. 2. No change from 04/17/2016. RPTAT: QQ .Mo Watts MD, MD Date Time Electronically viewed and signed by .Mo Watts MD, MD on 01/11/2017 18:03 .R/
[2017-01-11 18:21] VITALS: BP 127/71; PULSE 110; RESP 22; TEMP 98.3
== END 2017-01-11 18:22 | disposition home or self-care (01) ==
LOC: FTE 14:03
DX: J45.901 Unspecified asthma with (acute) exacerbation (principal); I10 Essential (primary) hypertension; E11.9 Type 2 diabetes mellitus without complications; Z79.84 Long term (current) use of oral hypoglycemic drugs
CPT/HCPCS: 71010; 93005; 94644; J7512; Z7502; Z7610

== ENCOUNTER 2017-03-08 10:06 | Emergency (ER) | payer MEDICAID ==
[~2017-03-08] VITALS: Wt 90.9 kg
[2017-03-08] MEDS ORDERED: ALBUTEROL 0.083% (NEB) 2.5 MG/3 ML AMP HHN STA (12:06)
[2017-03-08] MEDS ORDERED: IPRATROPIUM (NEB) 0.5 MG/2.5 ML AMP HHN ONE (12:30)
[2017-03-08] MEDS ORDERED: predniSONE 20 MG TAB PO ONE (12:30)
[2017-03-08] MEDS ORDERED: CETI10CA PO (12:45)
[2017-03-08] MEDS ORDERED: ALBU8.5H3 INH (12:45)
[2017-03-08] MEDS ORDERED: PRED20TA PO (12:45)
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
== END 2017-03-08 13:06 | disposition home or self-care (01) ==
LOC: FTE 10:06
DX: R05 Cough (principal); J45.901 Unspecified asthma with (acute) exacerbation; J45.909 Unspecified asthma, uncomplicated; I10 Essential (primary) hypertension; E11.9 Type 2 diabetes mellitus without complications; Z79.84 Long term (current) use of oral hypoglycemic drugs
CPT/HCPCS: 94664; J7512; Z7502; Z7610

== ENCOUNTER 2017-03-27 12:18 | Emergency (ER) | payer MEDICAID ==
[~2017-03-27] VITALS: Ht 160 cm; Wt 111.2 kg
[~2017-03-27 12:18] MED LIST changes: +CETI10CA PO
[2017-03-27 12:23] VITALS: Ht 160 cm; Wt 111.2 kg
[2017-03-27] MEDS ORDERED: ALBUTEROL 0.083% (NEB) 2.5 MG/3 ML AMP HHN STA (13:28)
[2017-03-27] MEDS ORDERED: DEXAMETHASONE 10 MG/ML 1 ML INJ IM ONE (13:30)
[2017-03-27] MEDS ORDERED: IPRATROPIUM (NEB) 0.5 MG/2.5 ML AMP HHN ONE (13:30)
--- NOTE | 2017-03-27 14:56 | RADRPT ---
PROCEDURE: XR 1 view Chest. CLINICAL INDICATION: Cough. TECHNIQUE: Portable Single frontal view of the chest was obtained. COMPARISON: CHEST 01/11/2017 FINDINGS: The heart is normal in size. There are mild aortic calcifications. There is no focal consolidation. There is no pleural effusion. No pneumothorax is identified. The osseous structures are intact. IMPRESSION: No significant change. No evidence for acute cardiopulmonary disease. Aortic calcifications. Further findings as detailed above. RPTAT: HVF .Anderson Mijares MD, Date Time Electronically viewed and signed by .Anderson Mijares MD, on 03/27/2017 14:56 .F/
[2017-03-27] MEDS ORDERED: AZIT250T94 PO (15:04)
[2017-03-27] MEDS ORDERED: MED4DP PO (15:05)
--- NOTE | 2017-03-27 15:10 | ERD ---
ER Documentation Chief Complaint Chief Complaint cough , congestion x 4 days HPI This is a 51-year-old female presents to the ER with a cough and nasal congestion for the last 4 days. Cough is productive, worse at night. Patient states she also experiences wheezing at night. She does have a past medical history of asthma. She denies any chest pain. She denies any fevers or chills. There are no sick contacts at home. Has not tried anything for her symptoms. ROS 12 point review of systems was done, all negative except per HPI. Medications Home Meds Active Scripts Methylprednisolone* (Medrol* DOSE PACK) 4 Mg/Dose-Pack Tab.ds.pk, 4 MG PO . DIRECTED for 6 Days, PACKET Prov:ROSSI STOVALL 03/27/17 Azithromycin* (Zithromax*) 250 Mg Tablet, 250 MG PO .ZPACK DIRECTED, #6 TAB TAKE 500 MG (2 TABS) THE FIRST DAY THEN 250 MG (1 TAB) DAYS 2-5 Prov:ROSSI STOVALL 03/27/17 Cetirizine Hcl* (Zyrtec*) 10 Mg Capsule, 10 MG PO DAILY, #15 TAB.CHEW Prov:DAVE SAMANO MD 03/08/17 Albuterol Sulfate* (Proair HFA*) 8.5 Gm Hfa.aer.ad, 2 PUFF INH Q4, #1 INHALER Prov:DAVE SAMANO MD 03/08/17 Prednisone* (Prednisone*) 20 Mg Tab, 40 MG PO DAILY for 4 Days, TAB Start March 09, 2017 Prov:DAVE SAMANO MD 03/08/17 Albuterol Sulfate* (Proair HFA*) 8.5 Gm Hfa.aer.ad, 2 PUFF INH Q4, #1 INHALER Prov:EMILIANO CARRILLO PA-C 01/11/17 Prednisone* (Prednisone*) 20 Mg Tab, 60 MG PO DAILY for 4 Days, TAB Prov:EMILIANO CARRILLO PA-C 01/11/17 Salmeterol Xinaf/Fluticasone* (Advair*) 250-50 Diskus Inhaler, 1 INH INHALATION BID, #1 INHALER Prov:YURIY MARQUIS PA-C 11/29/16 Albuterol Sulfate* (Proair HFA*) 8.5 Gm Hfa.aer.ad, 2 PUFF INH Q4, #1 INHALER Prov:YURIY MARQUIS PA-C 11/29/16 Hydrocodone Bit/Homatrop Me-Br (Tussigon 5-1.5 mg Tablet) 1 Each Tablet, 1 EACH PO TID Y for cough/pain, #10 TAB Prov:INOCENTE SNELL MD 09/18/16 Albuterol Sulfate* (Ventolin HFA*) 18 Gm Hfa.aer.ad, 2 PUFF INHALATION Q4H, #1 INHALER Prov:INOCENTE SNELL MD 09/18/16 Prednisone* (Prednisone*) 20 Mg Tab, 40 MG PO DAILY for 5 Days, TAB Prov:INOCENTE SNELL MD 09/18/16 Albuterol Sulfate* (Proair HFA*) 8.5 Gm Hfa.aer.ad, 2 PUFF INH Q4, #1 INHALER Prov:ROSSI STOVALL 05/05/16 Dextromethorphan Hb-Promethazine Hcl (Promethazine DM Syrup) 473 Ml Syrup, 10 ML PO Q6H Y for COUGH, #4 OZ Prov:ROSSI STOVALL 05/05/16 Methylprednisolone* (Medrol* DOSE PACK) 4 Mg/Dose-Pack Tab.ds.pk, 4 MG PO . DIRECTED for 6 Days, PACKET Prov:ROSSI STOVALL 05/05/16 Azithromycin* (Zithromax*) 250 Mg Tablet, 250 MG PO .ZPACK DIRECTED, #6 TAB TAKE 500 MG (2 TABS) THE FIRST DAY THEN 250 MG (1 TAB) DAYS 2-5 Prov:ROSSI STOVALL 05/05/16 Benzonatate* (Benzonatate*) 100 Mg Capsule, 100 MG PO TID Y for COUGH for 20 Days, CAP Prov:MURALI BURTON PA-C 04/17/16 Albuterol Sulfate* (Ventolin HFA*) 18 Gm Hfa.aer.ad, 2 PUFF INHALATION Q4H, #1 INHALER Prov:MURALI BURTON PA-C 04/17/16 Prednisone* (Prednisone*) 20 Mg Tab, 40 MG PO DAILY for 5 Days, #10 TAB Prov:MURALI BURTON PA-C 04/17/16 Ibuprofen* (Ibuprofen*) 600 Mg Tablet, 600 MG PO Q8 for PAIN AND/OR INFLAMMATION , #30 TAB Prov:CHIP MCNEILL MD 03/02/16 Prednisone* (Prednisone*) 20 Mg Tab, 40 MG PO DAILY for 4 Days, TAB Prov:CHIP MCNEILL MD 03/02/16 Albuterol Sulfate* (Proair HFA*) 8.5 Gm Hfa.aer.ad, 2 PUFF INH Q6H Y for WHEEZING AND SOB, #1 INHALER Prov:CHIP MCNEILL MD 03/02/16 Reported Medications Metformin* (Glucophage*) 1,000 Mg Tablet, 1000 MG PO BID, TAB 11/30/14 Allergies Allergies: Coded Allergies: No Known Allergy (Unverified , 03/08/17) PMhx/Soc History of Surgery: Yes ( ) Anesthesia Reaction: No Hx Neurological Disorder: No Hx Respiratory Disorders: Yes (ASTHMA ) Hx Cardiac Disorders: Yes (HTN, CHOLESTEROL) Hx Psychiatric Problems: No Hx Miscellaneous Medical Probl: Yes (DIABETES ) Hx Alcohol Use: No Hx Substance Use: No Hx Tobacco Use: No Physical Exam Vitals Vital Signs Date Time Temp Pulse Resp B/P Pulse Ox O2 Delivery O2 Flow Rate FiO2 03/27/17 13:43 95 19 95 21 03/27/17 12:23 98.4 98 18 167/78 98 Physical Exam GENERAL: The patient is well-developed, well-nourished, in no acute distress. NECK: Cervical spine is non tender with no step off. Supple, no nuchal rigidity HEENT: Atraumatic. Pupils equal, round and reactive to light. Extraocular muscles are grossly intact. Conjunctivae pink, no discharge. Bilateral tympanic membranes are clear with no evidence of erythema, effusion or dulling of the light reflex. Tonsilar erythema with no exudates or uvular deviation. Clear rhinorrhea. RESPIRATORY: expiratory wheezes in all lung martínez. No rales rhonchi or crackles HEART: Regular rate and rhythm. No murmurs, clicks, rubs or gallops. EXTREMITIES: No clubbing or cyanosis. Full range of motion. Grossly neurovascularly intact. NEUROLOGIC: Alert and oriented. Cranial nerves II through XII are intact. SKIN: There is no rash. The skin is warm and dry. Results 24 hrs Current Medications Medications (Trade) Dose Ordered Sig/Molly Route PRN Reason Start Time Stop Time Status Last Admin Dose Admin Albuterol (Proventil 0.083% (Neb)) 5 mg ONCE STAT HHN 03/27/17 13:28 03/27/17 13:30 DC 03/27/17 13:41 Ipratropium [place] (Atrovent 0.02% (Neb)) 0.5 mg ONCE ONCE HHN 03/27/17 13:30 03/27/17 13:31 DC 03/27/17 13:41 Dexamethasone (Decadron) 10 mg ONCE ONCE IM 03/27/17 13:30 03/27/17 13:31 DC 03/27/17 13:36 [place] [id number] Radiology Main Line: [phone] DIAGNOSTIC IMAGING REPORT Patient: [place] : 1965 Age: 51 Sex: F MR #: [id number] DOS: 03/27/17 0000 Ordering MD: ROSSI STOVALL. PA-C Location: [facility] Room/Bed: PROCEDURE: XR 1 view Chest. CLINICAL INDICATION: Cough. TECHNIQUE: Portable Single frontal view of the chest was obtained. COMPARISON: DR ROBIN 01/11/2017 FINDINGS: The heart is normal in size. There are mild aortic calcifications. There is no focal consolidation. There is no pleural effusion. No pneumothorax is identified. The osseous structures are intact. IMPRESSION: No significant change. No evidence for acute cardiopulmonary disease. Aortic calcifications. Further findings as detailed above. RPTAT: HVF .Anderson Mijares MD, MD Date Time Electronically viewed and signed by .Anderson Mijares MD, on 03/27/2017 14:56 .F/ CC: ROSSI STOVALL Procedures/MDM This is a 51-year-old female presents to the ER with a cough and wheezing for the last 4 days. Patient's x-ray is negative for pneumonia, however she will be treated for possible bacterial bronchitis. Patient is not hypoxic or in any respiratory distress she is afebrile and well-appearing. She will be sent home with azithromycin and prednisolone. She is to follow-up with her primary care doctor within 1-2 days return to ER sooner if symptoms worsen. My medical decision making sure with the patient she understands and agrees with plan. Departure Diagnosis: Primary Impression: Bronchitis Condition: Stable Patient Instructions: Bronchitis With Wheezing (Adult) Additional Instructions: Llame al doctor MAANA y ovi joaquina BUDDY PARA DENTRO DE 1-2 AGUIRRE.Dgale a la secretaria que nosotros le instruimos hacer esta buddy.Avise o llame si conde condicin se empeora antes de la buddy. Regresa aqui si peor o no mejor. ROSSI STOVALL Mar 27, 2017 15:10
[2017-03-27 15:40] VITALS: BP 171/82; PULSE 74; RESP 20; TEMP 98.6
== END 2017-03-27 15:41 | disposition home or self-care (01) ==
LOC: FTE 12:18
DX: J20.9 Acute bronchitis, unspecified (principal); J45.909 Unspecified asthma, uncomplicated; E11.9 Type 2 diabetes mellitus without complications; I10 Essential (primary) hypertension; Z79.84 Long term (current) use of oral hypoglycemic drugs
CPT/HCPCS: 71010; 94664; 96372; J1100; Z7502; Z7610

== ENCOUNTER 2017-05-10 18:26 | Emergency (ER) | END 2017-05-11 01:06 | disposition home or self-care (01) ==

== ENCOUNTER 2017-05-13 06:05 | Emergency (ER) | END 2017-05-13 12:44 | disposition home or self-care (01) ==

== ENCOUNTER 2017-09-21 06:23 | Emergency (ER) | END 2017-09-21 08:05 | disposition home or self-care (01) ==

== ENCOUNTER 2017-11-09 16:09 | Emergency (ER) | END 2017-11-09 20:44 | disposition home or self-care (01) ==

== ENCOUNTER 2017-12-13 09:02 | Emergency (ER) | END 2017-12-13 10:47 | disposition home or self-care (01) ==

== ENCOUNTER 2018-01-06 08:45 | Emergency (ER) | END 2018-01-06 10:14 | disposition home or self-care (01) ==

== ENCOUNTER 2018-03-09 10:51 | Emergency (ER) | END 2018-03-09 12:57 | disposition home or self-care (01) ==

== ENCOUNTER 2018-06-08 10:15 | Emergency (ER) | payer MEDICAID ==
[~2018-06-08] VITALS: Wt 122.0 kg
[~2018-06-08 10:15] MED LIST changes: +ACET500C5 PO; +ALBU2.5V3 NEB; -ALBU8.5H3 INH; +ALBU8.5H8 INH; +AZIT250T PO; -AZIT250T94 PO; +BENZ-6 PO; +BENZ1LOZ52 MM; +D-ME473S2 PO; +GUAI-173 PO; +GUAI5SYR2 PO; +SODI126M NASAL; +[UNRECOGNIZED DRUG - CODE] MC
--- NOTE | 2018-06-08 11:37 | ERD ---
ER Documentation Chief Complaint Chief Complaint COUGH X 3 WEEKS HPI 52-year-old female, with history of diabetes and asthma presents the emergency department, complaining of 3 weeks with cough, runny nose and chest congestion. The patient denies shortness of breath, no chest pain, but is complaining about nocturnal wheezing. ROS All systems reviewed and are negative except as per history of present illness. Medications Home Meds Active Scripts Prednisone* (Prednisone*) 20 Mg Tab, 40 MG PO DAILY for 4 Days, TAB Prov:PETER RODRIGUEZ MD 06/08/18 Amoxicillin* (Amoxicillin*) 500 Mg Cap, 500 MG PO TID for 7 Days, CAP Prov:PETER RODRIGUEZ MD 06/08/18 Dextromethorphan Hb-Promethazine Hcl* (Promethazine DM* Syrup) 473 Ml Syrup, 5 ML PO Q6 PRN for COUGH for 4 Days, ML Prov:DAVE SAMANO MD 03/09/18 Albuterol Sulfate* (Ventolin HFA*) 18 Gm Hfa.aer.ad, 2 PUFF INHALATION Q4H, #1 INHALER Prov:DAVE SAMANO MD 03/09/18 Prednisone* (Prednisone*) 20 Mg Tab, 40 MG PO DAILY for 4 Days, TAB Start March 10, 2018 Prov:DAVE SAMANO MD 03/09/18 Blood Sugar Diagnostic (Accu-Chek Guide Test Strip) 1 Each Strip, 1 EACH MC DAILY, #100 STRIP Prov:YURIY MARQUIS PA-C 01/06/18 Cetirizine Hcl* (Zyrtec*) 10 Mg Capsule, 10 MG PO DAILY, #14 TAB.CHEW Prov:YURIY MARQUIS PA-C 01/06/18 Guaifenesin-Dextromethorphan* (Robitussin* DM) 100MG/10MG/5ML Syrup, 10 ML PO Q6H PRN for COUGH for 5 Days, ML Prov:YURIY MARQUIS PA-C 01/06/18 Prednisone* (Prednisone*) 20 Mg Tab, 40 MG PO DAILY for 4 Days, TAB Prov:YURIY MARQUIS PA-C 01/06/18 Benzocaine/Menthol* (Cepacol* Sore Throat Lozenges) 1 Each Lozenge, 1 EACH MM q2h PRN for SORE THROAT, #20 LOZENGE Prov:GIOVANI,RUI Mj. ACTIVITIES DIRECTOR SCOUTING 12/13/17 Guaifenesin* (Tussin*) 100 Mg/5 Ml Syrup, 100 MG PO Q6 PRN for COUGH, #120 ML Prov:GIOVANIRUI Mj. ACTIVITIES DIRECTOR SC[employer]ING 12/13/17 Sodium Chloride (Saline Nasal Mist) 126 Ml Mist, 2 SPRAY NASAL Q2H PRN for NASAL CONGESTION, #1 BOTTLE Prov:GIOVANIRUI X. ACTIVITIES DIRECTOR SCOUTING 12/13/17 Benzonatate* (Tessalon Perle*) 100 Mg Capsule, 100 MG PO Q8H PRN for COUGH, #14 CAP Prov:HATTIEESTEPHANIASPIKEELSA Acharya 11/09/17 Albuterol Sulfate* (Albuterol Sulfate* Neb) 0.083%-3 Ml Neb, 2.5 MG NEB Q4 PRN for SHORTNESS OF BREATH, #30 EA Prov:HATTIEESTEPHANIAALEXIS Patrizia 11/09/17 Albuterol Sulfate* (Proair HFA*) 8.5 Gm Hfa.aer.ad, 2 PUFF INH Q4H PRN for WHEEZING AND SOB, #1 INHALER Prov:HATTIEESTEPHANIASPIKEELSA Acharya 11/09/17 Azithromycin* (Zithromax*) 250 Mg Tablet, 250 MG PO .ZPACK DIRECTED, #6 TAB TAKE 500 MG (2 TABS) THE FIRST DAY THEN 250 MG (1 TAB) DAYS 2-5 Prov:HAYDEESPIKEELSA Acharya 11/09/17 Dextromethorphan Hb-Promethazine Hcl* (Promethazine DM* Syrup) 473 Ml Syrup, 5 ML PO Q6 PRN for COUGH, #100 ML Prov:BILLIE MOORE PA-C 09/21/17 Benzonatate* (Tessalon Perle*) 100 Mg Capsule, 100 MG PO Q8H PRN for COUGH, #30 CAP Prov:BILLIE MOORE PA-C 09/21/17 Albuterol Sulfate* (Proair HFA*) 8.5 Gm Hfa.aer.ad, 2 PUFF INH Q4, #1 INHALER Prov:BILLIE MOORE PA-C 09/21/17 Prednisone* (Prednisone*) 20 Mg Tab, 40 MG PO DAILY for 4 Days, TAB Prov:BILLIE MOORE PA-C 09/21/17 Albuterol Sulfate* (Proair HFA*) 8.5 Gm Hfa.aer.ad, 2 PUFF INH Q4, #1 INHALER Prov:EMILIANO CARRILLOC 05/13/17 Prednisone* (Prednisone*) 20 Mg Tab, 60 MG PO DAILY for 4 Days, TAB Prov:GERARDOEMILIANO DomingoC 05/13/17 Cetirizine Hcl* (Zyrtec*) 10 Mg Capsule, 10 MG PO DAILY, #30 TAB.CHEW Prov:LOLIS AUGUSTE [employer]IVIT[employer] DIRECT[employer]ING 05/11/17 Acetaminophen* (Tylophen*) 500 Mg Capsule, 1 CAP PO Q6H PRN for PAIN AND OR ELEVATED TEMP, #20 CAP Prov:LOLIS AUGUSET [employer]IVITIES DIRECTOR SC[employer]ING 05/11/17 Ibuprofen* (Motrin*) 600 Mg Tab, 600 MG PO Q6H PRN for PAIN AND OR ELEVATED TEMP, #30 TAB Prov:LOLIS AUGUSTE [employer]IVIT[employer] DIRECTOR [employer]ING 05/11/17 Azithromycin* (Zithromax*) 250 Mg Tablet, 250 MG PO .ZPACK DIRECTED, #6 TAB TAKE 500 MG (2 TABS) THE FIRST DAY THEN 250 MG (1 TAB) DAYS 2-5 Prov:LOLIS AUGUSTE. ACTIVITIES DIRECTOR [employer]ING 05/11/17 Benzonatate* (Tessalon Perle*) 100 Mg Capsule, 100 MG PO Q8H PRN for COUGH, #20 CAP Prov:LOLIS AUGUSTE. ACTIVITIES DIRECTOR [employer]ING 05/11/17 Albuterol Sulfate* (Proair HFA*) 8.5 Gm Hfa.aer.ad, 2 PUFF INH Q4H PRN for WHEEZING AND SOB, #1 INHALER Prov:LOLIS AUGUSTE [employer]IVIT[employer] DIRECTOR [employer]ING 05/11/17 Methylprednisolone* (Medrol* DOSE PACK) 4 Mg/Dose-Pack Tab.ds.pk, 4 MG PO . DIRECTED for 6 Days, PACKET Prov:ROSSI STOVALL 03/27/17 Azithromycin* (Zithromax*) 250 Mg Tablet, 250 MG PO .VINCENZO DIRECTED, #6 TAB TAKE 500 MG (2 TABS) THE FIRST DAY THEN 250 MG (1 TAB) DAYS 2-5 Prov:ROSSI STOVALL 03/27/17 Cetirizine Hcl* (Zyrtec*) 10 Mg Capsule, 10 MG PO DAILY, #15 TAB.CHEW Prov:DAVE SAMANO MD 03/08/17 Albuterol Sulfate* (Proair HFA*) 8.5 Gm Hfa.aer.ad, 2 PUFF INH Q4, #1 INHALER Prov:DAVE SAMANO MD 03/08/17 Prednisone* (Prednisone*) 20 Mg Tab, 40 MG PO DAILY for 4 Days, TAB Start March 09, 2017 Prov:DAVE SAMANO MD 03/08/17 Albuterol Sulfate* (Proair HFA*) 8.5 Gm Hfa.aer.ad, 2 PUFF INH Q4, #1 INHALER Prov:EMILIANO CARRILLO PA-C 01/11/17 Prednisone* (Prednisone*) 20 Mg Tab, 60 MG PO DAILY for 4 Days, TAB Prov:EMILIANO CARRILLO PA-C 01/11/17 Salmeterol Xinaf/Fluticasone* (Advair*) 250-50 Diskus Inhaler, 1 INH INHALATION BID, #1 INHALER Prov:YURIY MARQUIS PA-C 11/29/16 Albuterol Sulfate* (Proair HFA*) 8.5 Gm Hfa.aer.ad, 2 PUFF INH Q4, #1 INHALER Prov:YURIY MARQUIS PA-C 11/29/16 Hydrocodone Bit/Homatrop Me-Br (Tussigon 5-1.5 mg Tablet) 1 Each Tablet, 1 EACH PO TID PRN for cough/pain, #10 TAB Prov:INOCENTE SNELL MD 09/18/16 Albuterol Sulfate* (Ventolin HFA*) 18 Gm Hfa.aer.ad, 2 PUFF INHALATION Q4H, #1 INHALER Prov:INOCENTE SNELL MD 09/18/16 Prednisone* (Prednisone*) 20 Mg Tab, 40 MG PO DAILY for 5 Days, TAB Prov:INOCENTE SNELL MD 09/18/16 Albuterol Sulfate* (Proair HFA*) 8.5 Gm Hfa.aer.ad, 2 PUFF INH Q4, #1 INHALER Prov:ROSSI STOVALL 05/05/16 Dextromethorphan Hb-Promethazine Hcl (Promethazine DM Syrup) 473 Ml Syrup, 10 ML PO Q6H PRN for COUGH, #4 OZ Prov:ROSSI STOVALL 05/05/16 Methylprednisolone* (Medrol* DOSE PACK) 4 Mg/Dose-Pack Tab.ds.pk, 4 MG PO . DIRECTED for 6 Days, PACKET Prov:ROSSI STOVALL 05/05/16 Azithromycin* (Zithromax*) 250 Mg Tablet, 250 MG PO .ZPACK DIRECTED, #6 TAB TAKE 500 MG (2 TABS) THE FIRST DAY THEN 250 MG (1 TAB) DAYS 2-5 Prov:ROSSI STOVALL 05/05/16 Benzonatate* (Benzonatate*) 100 Mg Capsule, 100 MG PO TID PRN for COUGH for 20 Days, CAP Prov:MURALI BURTON PA-C 04/17/16 Albuterol Sulfate* (Ventolin HFA*) 18 Gm Hfa.aer.ad, 2 PUFF INHALATION Q4H, #1 INHALER Prov:MURALI BURTON PA-C 04/17/16 Prednisone* (Prednisone*) 20 Mg Tab, 40 MG PO DAILY for 5 Days, #10 TAB Prov:MURALI BURTON PA-C 04/17/16 Ibuprofen* (Ibuprofen*) 600 Mg Tablet, 600 MG PO Q8 for PAIN AND/OR INFLAMMATION, #30 TAB Prov:CHIP MCNEILL MD 03/02/16 Prednisone* (Prednisone*) 20 Mg Tab, 40 MG PO DAILY for 4 Days, TAB Prov:CHIP MCNEILL MD 03/02/16 Albuterol Sulfate* (Proair HFA*) 8.5 Gm Hfa.aer.ad, 2 PUFF INH Q6H PRN for WHEEZING AND SOB, #1 INHALER Prov:CHIP MCNEILL MD 03/02/16 Reported Medications [none] Unknown Strength No Conflict Check 05/10/17 Metformin* (Glucophage*) 1,000 Mg Tablet, 1000 MG PO BID, TAB 11/30/14 Allergies Allergies: Coded Allergies: No Known Allergy (Unverified , 12/13/17) PMhx/Soc History of Surgery: Yes (c section 1982) Anesthesia Reaction: No Hx Neurological Disorder: No Hx Respiratory Disorders: Yes (asthma) Hx Cardiac Disorders: Yes (hypercholesterolemia,htn) Hx Psychiatric Problems: No Hx Miscellaneous Medical Probl: Yes (dm) Hx Alcohol Use: No Hx Substance Use: No Hx Tobacco Use: No Smoking Status: Never smoker Physical Exam Vitals Vital Signs Date Temp Pulse Resp B/P (MAP) Pulse Ox O2 O2 Flow FiO2 Time Delivery Rate 06/08/18 98.1 104 18 145/66 99 10:18 (92) Physical Exam Const: No acute distress Head: Atraumatic Eyes: Normal Conjunctiva ENT: Normal External Ears, Nose and Mouth. Neck: Full range of motion. No meningismus. Resp: Mild expiratory wheezing to auscultation bilaterally Cardio: Regular rate and rhythm, no murmurs Abd: Soft, non tender, non distended. Normal bowel sounds Skin: No petechiae or rashes Back: No midline or flank tenderness Ext: No cyanosis, or edema Neur: Awake and alert Psych: Normal Mood and Affect Procedures/MDM At the time of discharge, vital signs stable, no respiratory distress. Differential diagnosis include but not limited to: Respiratory infection bacterial/viral/fungal. Asthma/COPD, pneumonitis, allergies, GERD. Less likely foreign body aspiration, cardiac related, aspiration pneumonia, malignancy. Physical examination and clinical presentation consistent most likely with cough and asthma without evidence of exacerbation During the ED course the patient remained stable. Clinical impression discussed with the patient who agrees with management. The patient is stable to be treated outpatient and will be discharged home. Some side effects of prescribed medications (headache, rash, nausea, vomiting, diarrhea, drowsiness, habituation, bleeding, hypertension, interactions with other medications) were reviewed. The patient was instructed to follow up with the primary care provider in the next 48h. If symptoms persist, worsen or new symptoms develop, then patient should return to the ED immediately. Disclaimer: Inadvertent spelling and grammatical errors are likely due to EHR/dictation software use and do not reflect on the overall quality of patient care. Also, please note that the electronic time recorded on this note does not necessarily reflect the actual time of the patient encounter. Departure Diagnosis: Primary Impression: Cough Additional Impression: Intermittent asthma Condition: Stable Additional Instructions: Muchas shirlene por [facility] para conde servicio. Esperamos que en conde visita a la anand de emergencia conde problema medico haya sido solucionado y que se sienta mucho mejor. Para estar seguros que conde mejoria sigue en proceso, le pedimos el favor de hacer joaquina hai de seguimiento medico con conde doctor primario en los proximos 2-4 ross. Lleve con usted estos documentos y las medicinas recetadas. Si jose sintomas empeoran, NO SE ESPERE, por favor regrese a anand de emergencia INMEDIATAMENTE. En matt que usted no tenga un mdico de atencin primaria: Llame al mdico o clnica comunitaria de referencia que aparece abajo vera las horas de consultorio para hacer joaquina hai para que le vean. CLINICAS: [facility] [phone] [address] [facility] [phone] [facility] [phone] [address] [facility]. [facility] [phone] [address] [place] [phone] [facility]. [phone] MD Jun 08, 2018 11:37
[2018-06-08] MEDS ORDERED: PRED20TA PO (11:51)
[2018-06-08] MEDS ORDERED: AMOX500C2 PO (11:51)
[2018-06-08 12:26] VITALS: BP 132/62; PULSE 66; RESP 18
== END 2018-06-08 12:23 | disposition home or self-care (01) ==
LOC: FTE 10:15
DX: J45.21 Mild intermittent asthma with (acute) exacerbation (principal); E11.9 Type 2 diabetes mellitus without complications; I10 Essential (primary) hypertension; Z79.84 Long term (current) use of oral hypoglycemic drugs
CPT/HCPCS: 99283

== ENCOUNTER 2018-07-03 04:58 | Emergency (ER) | payer MEDICAID ==
[~2018-07-03] VITALS: Ht 152.4 cm; Wt 123.9 kg
[~2018-07-03 04:58] MED LIST changes: +AMOX500C2 PO
[2018-07-03 05:07] VITALS: BP 160/81; Ht 152.4 cm; Wt 123.9 kg
[2018-07-03] MEDS ORDERED: ALBUTEROL 0.083% (NEB) 2.5 MG/3 ML AMP NEB STA (05:14)
[2018-07-03] MEDS ORDERED: predniSONE 20 MG TAB PO STA (05:14)
[2018-07-03] MEDS ORDERED: IPRATROPIUM (NEB) 0.5 MG/2.5 ML AMP NEB STA (05:14)
--- NOTE | 2018-07-03 05:17 | ERD ---
ER Documentation Chief Complaint Chief Complaint PT reports asthma exacerbation x 2 days HPI 52-year-old female, with history of asthma, presents to the emergency department, complaining of 2 days with worsening of cough, associated with wheezing and general malaise. The patient has been using the inhaler without i mprovement of the symptoms. ROS All systems reviewed and are negative except as per history of present illness. Medications Home Meds Active Scripts Prednisone* (Prednisone*) 20 Mg Tab, 40 MG PO DAILY for 4 Days, TAB Prov:PETER RODRIGUEZ MD 06/08/18 Amoxicillin* (Amoxicillin*) 500 Mg Cap, 500 MG PO TID for 7 Days, CAP Prov:PETER RODRIGUEZ MD 06/08/18 Dextromethorphan Hb-Promethazine Hcl* (Promethazine DM* Syrup) 473 Ml Syrup, 5 ML PO Q6 PRN for COUGH for 4 Days, ML Prov:DAVE SAMANO MD 03/09/18 Albuterol Sulfate* (Ventolin HFA*) 18 Gm Hfa.aer.ad, 2 PUFF INHALATION Q4H, #1 INHALER Prov:DAVE SAMANO MD 03/09/18 Prednisone* (Prednisone*) 20 Mg Tab, 40 MG PO DAILY for 4 Days, TAB Start March 10, 2018 Prov:DAVE SAMANO MD 03/09/18 Blood Sugar Diagnostic (Accu-Chek Guide Test Strip) 1 Each Strip, 1 EACH MC DAILY, #100 STRIP Prov:YURIY MARQUIS PA-C 01/06/18 Cetirizine Hcl* (Zyrtec*) 10 Mg Capsule, 10 MG PO DAILY, #14 TAB.CHEW Prov:YURIY MARQUIS PA-C 01/06/18 Guaifenesin-Dextromethorphan* (Robitussin* DM) 100MG/10MG/5ML Syrup, 10 ML PO Q6H PRN for COUGH for 5 Days, ML Prov:YURIY MARQUIS PA-C 01/06/18 Prednisone* (Prednisone*) 20 Mg Tab, 40 MG PO DAILY for 4 Days, TAB Prov:YURIY MARQUIS PA-C 01/06/18 Benzocaine/Menthol* (Cepacol* Sore Throat Lozenges) 1 Each Lozenge, 1 EACH MM q2h PRN for SORE THROAT, #20 LOZENGE Prov:GIOVANIRUI Mj. [employer]EST [employer]ODU[employer] GATHERER 12/13/17 Guaifenesin* (Tussin*) 100 Mg/5 Ml Syrup, 100 MG PO Q6 PRN for COUGH, #120 ML Prov:GIOVANI,RUI Mj. [employer]EST [employer]ODU[employer] GATHERER 12/13/17 Sodium Chloride (Saline Nasal Mist) 126 Ml Mist, 2 SPRAY NASAL Q2H PRN for NASAL CONGESTION, #1 BOTTLE Prov:GIOVANI,RUI Mj. [employer]EST [employer]ODUCTS GATHERER 12/13/17 Benzonatate* (Tessalon Perle*) 100 Mg Capsule, 100 MG PO Q8H PRN for COUGH, #14 CAP Prov:HATTIEESTEPHANIASPIKEELSA Acharya 11/09/17 Albuterol Sulfate* (Albuterol Sulfate* Neb) 0.083%-3 Ml Neb, 2.5 MG NEB Q4 PRN for SHORTNESS OF BREATH, #30 EA Prov:HATTIEESTEPHANIAALEXIS 11/09/17 Albuterol Sulfate* (Proair HFA*) 8.5 Gm Hfa.aer.ad, 2 PUFF INH Q4H PRN for WHEEZING AND SOB, #1 INHALER Prov:HAYDEESPIKEELSA Acharya 11/09/17 Azithromycin* (Zithromax*) 250 Mg Tablet, 250 MG PO .ZPACK DIRECTED, #6 TAB TAKE 500 MG (2 TABS) THE FIRST DAY THEN 250 MG (1 TAB) DAYS 2-5 Prov:HAYDEESPIKEELSA Acharya 11/09/17 Dextromethorphan Hb-Promethazine Hcl* (Promethazine DM* Syrup) 473 Ml Syrup, 5 ML PO Q6 PRN for COUGH, #100 ML Prov:BILLIE MOORE PA-C 09/21/17 Benzonatate* (Tessalon Perle*) 100 Mg Capsule, 100 MG PO Q8H PRN for COUGH, #30 CAP Prov:BILLIE MOORE PA-C 09/21/17 Albuterol Sulfate* (Proair HFA*) 8.5 Gm Hfa.aer.ad, 2 PUFF INH Q4, #1 INHALER Prov:BILLIE MOORE PA-C 09/21/17 Prednisone* (Prednisone*) 20 Mg Tab, 40 MG PO DAILY for 4 Days, TAB Prov:BILLIE MOORE PA-C 09/21/17 Albuterol Sulfate* (Proair HFA*) 8.5 Gm Hfa.aer.ad, 2 PUFF INH Q4, #1 INHALER Prov:EMILIANO CARRILLOC 05/13/17 Prednisone* (Prednisone*) 20 Mg Tab, 60 MG PO DAILY for 4 Days, TAB Prov:EMILIANO CARRILLOC 05/13/17 Cetirizine Hcl* (Zyrtec*) 10 Mg Capsule, 10 MG PO DAILY, #30 TAB.CHEW Prov:LOLIS AUGUSTE [employer] GATH[employer]ER 05/11/17 Acetaminophen* (Tylophen*) 500 Mg Capsule, 1 CAP PO Q6H PRN for PAIN AND OR ELEVATED TEMP, #20 CAP Prov:LOLIS AUGUSTE [employer] GATH[employer]ER 05/11/17 Ibuprofen* (Motrin*) 600 Mg Tab, 600 MG PO Q6H PRN for PAIN AND OR ELEVATED TEMP , #30 TAB Prov:LOLIS AUGUSTE [employer] GATH[employer]ER 05/11/17 Azithromycin* (Zithromax*) 250 Mg Tablet, 250 MG PO .ZPACK DIRECTED, #6 TAB TAKE 500 MG (2 TABS) THE FIRST DAY THEN 250 MG (1 TAB) DAYS 2-5 Prov:LOLIS AUGUSTE [employer] GATH[employer]ER 05/11/17 Benzonatate* (Tessalon Perle*) 100 Mg Capsule, 100 MG PO Q8H PRN for COUGH, #20 CAP Prov:LOLIS AUGUSTE. [employer] GATHERER 05/11/17 Albuterol Sulfate* (Proair HFA*) 8.5 Gm Hfa.aer.ad, 2 PUFF INH Q4H PRN for WHEEZING AND SOB, #1 INHALER Prov:LOLIS AUGUSTE [employer] G[employer]ER 05/11/17 Methylprednisolone* (Medrol* DOSE PACK) 4 Mg/Dose-Pack Tab.ds.pk, 4 MG PO . DIRECTED for 6 Days, PACKET Prov:ROSSI STOVALL 03/27/17 Azithromycin* (Zithromax*) 250 Mg Tablet, 250 MG PO .VINCENZO DIRECTED, #6 TAB TAKE 500 MG (2 TABS) THE FIRST DAY THEN 250 MG (1 TAB) DAYS 2-5 Prov:ROSSI STOVALL 03/27/17 Cetirizine Hcl* (Zyrtec*) 10 Mg Capsule, 10 MG PO DAILY, #15 TAB.CHEW Prov:DAVE SAMANO MD 03/08/17 Albuterol Sulfate* (Proair HFA*) 8.5 Gm Hfa.aer.ad, 2 PUFF INH Q4, #1 INHALER Prov:DAVE SAMANO MD 03/08/17 Prednisone* (Prednisone*) 20 Mg Tab, 40 MG PO DAILY for 4 Days, TAB Start March 09, 2017 Prov:DAVE SAMANO MD 03/08/17 Albuterol Sulfate* (Proair HFA*) 8.5 Gm Hfa.aer.ad, 2 PUFF INH Q4, #1 INHALER Prov:EMILIANO CARRILLO PA-C 01/11/17 Prednisone* (Prednisone*) 20 Mg Tab, 60 MG PO DAILY for 4 Days, TAB Prov:EMILIANO CARRILLO PA-C 01/11/17 Salmeterol Xinaf/Fluticasone* (Advair*) 250-50 Diskus Inhaler, 1 INH INHALATION BID, #1 INHALER Prov:YURIY MARQUIS PA-C 11/29/16 Albuterol Sulfate* (Proair HFA*) 8.5 Gm Hfa.aer.ad, 2 PUFF INH Q4, #1 INHALER Prov:YURIY MARQUIS PA-C 11/29/16 Hydrocodone Bit/Homatrop Me-Br (Tussigon 5-1.5 mg Tablet) 1 Each Tablet, 1 EACH PO TID PRN for cough/pain, #10 TAB Prov:INOCENTE SNELL MD 09/18/16 Albuterol Sulfate* (Ventolin HFA*) 18 Gm Hfa.aer.ad, 2 PUFF INHALATION Q4H, #1 INHALER Prov:INOCENTE SNELL MD 09/18/16 Prednisone* (Prednisone*) 20 Mg Tab, 40 MG PO DAILY for 5 Days, TAB Prov:INOCENTE SNELL MD 09/18/16 Albuterol Sulfate* (Proair HFA*) 8.5 Gm Hfa.aer.ad, 2 PUFF INH Q4, #1 INHALER Prov:WILMANROSSI PAYNE 05/05/16 Dextromethorphan Hb-Promethazine Hcl (Promethazine DM Syrup) 473 Ml Syrup, 10 ML PO Q6H PRN for COUGH, #4 OZ Prov:ROSSI STOVALL 05/05/16 Methylprednisolone* (Medrol* DOSE PACK) 4 Mg/Dose-Pack Tab.ds.pk, 4 MG PO . DIRECTED for 6 Days, PACKET Prov:ROSSI STOVALL 05/05/16 Azithromycin* (Zithromax*) 250 Mg Tablet, 250 MG PO .ZPACK DIRECTED, #6 TAB TAKE 500 MG (2 TABS) THE FIRST DAY THEN 250 MG (1 TAB) DAYS 2-5 Prov:ROSSI STOVALL 05/05/16 Benzonatate* (Benzonatate*) 100 Mg Capsule, 100 MG PO TID PRN for COUGH for 20 Days, CAP Prov:MURALI BURTON PA-C 04/17/16 Albuterol Sulfate* (Ventolin HFA*) 18 Gm Hfa.aer.ad, 2 PUFF INHALATION Q4H, #1 INHALER Prov:MURALI BURTON PA-C 04/17/16 Prednisone* (Prednisone*) 20 Mg Tab, 40 MG PO DAILY for 5 Days, #10 TAB Prov:MURALI BURTON PA-C 04/17/16 Ibuprofen* (Ibuprofen*) 600 Mg Tablet, 600 MG PO Q8 for PAIN AND/OR INFLAMMATION, #30 TAB Prov:CHIP MCNEILL MD 03/02/16 Prednisone* (Prednisone*) 20 Mg Tab, 40 MG PO DAILY for 4 Days, TAB Prov:CHIP MCNEILL MD 03/02/16 Albuterol Sulfate* (Proair HFA*) 8.5 Gm Hfa.aer.ad, 2 PUFF INH Q6H PRN for WHEEZING AND SOB, #1 INHALER Prov:CHIP MCNEILL MD 03/02/16 Reported Medications [none] Unknown Strength No Conflict Check 05/10/17 Metformin* (Glucophage*) 1,000 Mg Tablet, 1000 MG PO BID, TAB 11/30/14 Allergies Allergies: Coded Allergies: No Known Allergy (Unverified , 12/13/17) PMhx/Soc History of Surgery: Yes (c section 1982) Anesthesia Reaction: No Hx Neurological Disorder: No Hx Cardiac Disorders: Yes (htn, dm) Hx Psychiatric Problems: No Hx Miscellaneous Medical Probl: Yes (dm) Hx Alcohol Use: No Hx Substance Use: No Hx Tobacco Use: No Smoking Status: Never smoker FmHx Family History: No diabetes, No coronary disease Physical Exam Vitals Vital Signs Date Temp Pulse Resp B/P (MAP) Pulse Ox O2 O2 Flow FiO2 Time Delivery Rate 07/03/18 98.5 89 24 160/81 96 05:07 (107) Physical Exam patient alert, oriented, vital signs stable. HEENT: Normocephalic, atraumatic. EYES: PERRLA, EOMI, Sclera and conjunctiva appear normal. EARS: Canals clear, tympanic membranes WNL. THROAT: Erythematous oropharynx. NECK: Supple, No lymphadenopathy. Full ROM without pain or tenderness. HEART: RRR, no rubs, murmurs, clicks or gallops. LUNGS: Bilateral wheezing to auscultation. ABDOMEN: Soft, non-tender without masses or hepatosplenomegaly. EXTREMITIES: No edema bilaterally. BACK: Full ROM, no deformity, normal back exam NEURO: Cranial nerves grossly intact, no motor or sensory deficit SKIN: No rashes, no petechia. Results 24 hrs Current Medications Medications Dose Sig/Molly Start Time Status Last (Trade) Ordered Route PRN Stop Time Admin Dose Reason Admin Albuterol 5 mg ONCE STAT 07/03/18 DC 07/03/18 (Proventil NEB 05:14 07/03/18 05:19 0.083% (Neb)) 05:17 Ipratropium 0.5 mg ONCE STAT 07/03/18 DC 07/03/18 [place] NEB 05:14 07/03/18 05:19 (Atrovent 05:17 0.02% (Neb)) Prednisone 60 mg ONCE STAT 07/03/18 DC (Prednisone) PO 05:14 07/03/18 05:17 Procedures/MDM At the time of discharge, vital signs stable, no respiratory distress. Differential diagnosis include but not limited to: Respiratory infection bacterial/viral/fungal. Asthma/COPD, pneumonitis, allergies, GERD. Less likely foreign body aspiration, cardiac related, aspiration pneumonia, malignancy. Physical examination and clinical presentation consistent most likely with acute asthma exacerbation with early superimposed bacterial infection. During the ED course the patient remained stable, received a nebulized treatment and steroids in the ED presenting overall improvement of the symptoms, no new complaints. Clinical impression discussed with the patient who agrees with management. The patient is stable to be treated outpatient and will be discharged home. Some side effects of prescribed medications (headache, rash, nausea, vomiting, diarrhea, drowsiness, habituation, bleeding, hypertension, interactions with other medications) were reviewed. The patient was instructed to follow up with the primary care provider in the next 48h. If symptoms persist, worsen or new symptoms develop, then patient should return to the ED immediately. Disclaimer: Inadvertent spelling and grammatical errors are likely due to EHR/dictation software use and do not reflect on the overall quality of patient care. Also, please note that the electronic time recorded on this note does not necessarily reflect the actual time of the patient encounter. Departure Diagnosis: Primary Impression: Asthma with acute exacerbation Condition: Stable Patient Instructions: Asthma, Acute (Adult) Additional Instructions: Muchas shirlene por [facility] para conde servicio. Esperamos que en conde visita a la anand de emergencia conde problema medico haya sido solucionado y que se sienta mucho mejor. Para estar seguros que conde mejoria sigue en proceso, le pedimos el favor de hacer joaquina hai de seguimiento medico con conde doctor primario en los proximos 2-4 ross. Lleve con usted estos documentos y las medicinas recetadas. Si jose sintomas empeoran, NO SE ESPERE, por favor regrese a anand de emergencia INMEDIATAMENTE. En matt que usted no tenga un mdico de atencin primaria: Llame al mdico o clnica comunitaria de referencia que aparece abajo vera las horas de consultorio para hacer joaquina hai para que le vean. CLINICAS: [facility] [phone] [address] [facility] [phone] [facility] [phone] [address] [facility] [phone] [facility] [phone] [facility]. [phone] PETER DOAN MD Jul 03, 2018 05:17
[2018-07-03] MEDS ORDERED: IPRA3AMP29 INH (05:28)
[2018-07-03] MEDS ORDERED: NEBU1KIT3 MC (05:28)
[2018-07-03] MEDS ORDERED: MONT10TA21 PO (05:28)
[2018-07-03] MEDS ORDERED: PRED20TA PO (05:28)
[2018-07-03] MEDS ORDERED: ALBU8.5H8 INH (05:31)
[2018-07-03] MEDS ORDERED: PROM5SYR2 PO (05:46)
[2018-07-03 05:48] VITALS: PULSE 90; RESP 20
== END 2018-07-03 05:51 | disposition home or self-care (01) ==
LOC: FTE 04:58
DX: J45.901 Unspecified asthma with (acute) exacerbation (principal); E11.9 Type 2 diabetes mellitus without complications; I10 Essential (primary) hypertension; Z79.84 Long term (current) use of oral hypoglycemic drugs
CPT/HCPCS: 94664; J7512; Z7502; Z7610

== ENCOUNTER 2018-09-14 04:49 | Emergency (ER) | payer MEDICAID ==
[~2018-09-14] VITALS: Ht 157.5 cm; Wt 122.2 kg
[2018-09-14 04:49] VITALS: BP 141/72; PULSE 104; RESP 20; Ht 157.5 cm; Wt 122.2 kg
[~2018-09-14 04:49] MED LIST changes: +IPRA3AMP29 INH; +MONT10TA21 PO; +NEBU1KIT3 MC; +PROM5SYR2 PO
[2018-09-14] MEDS ORDERED: ALBUTEROL 0.083% (NEB) 2.5 MG/3 ML AMP HHN STA (05:07)
--- NOTE | 2018-09-14 05:07 | ERD ---
ER Documentation Chief Complaint Chief Complaint COUGH & SOB; HX OF ASTHMA HPI This is a 52-year-old female who presents here in the emergency department with complaints of cough and shortness of breath with wheezing that is on and off for about 3 days. Stated that she has been using her inhaler without relief. St ated that she came here in the emergency department for treatment of her asthma. LMP: Denies headache, head injury, loss of consciousness, dizziness, neck pain, neck stiffness, throat pain, difficulty swallowing, difficulty breathing lying flat, shoulder pain, chest pain, back pain, abdominal pain, nausea, vomiting, constipation, diarrhea, urinary symptoms, or possibility being , loss of bowel and bladder control, trauma, injury, falls, difficulty walking due to pain, numbness or tingling sensation, calf pain, recent travel, recent major surgery in the last 3 weeks, calf pain, recent long travel, recent exposure to any illness, recent antibiotic use in the last 3 months, fever, chills, seizures. Past medical history: Surgical history: Social: Denies smoking, use of alcoholic beverages, use of illegal drugs. ROS All systems reviewed and are negative except as per history of present illness. Medications Home Meds Active Scripts Albuterol Sulfate* (Proair HFA*) 8.5 Gm Hfa.aer.ad, 2 PUFF INH Q4H PRN for WHEEZING AND SOB, #1 INHALER Prov:ALEXIS HUBBARD 09/14/18 Azithromycin* (Zithromax*) 250 Mg Tablet, 250 MG PO .ZPACK DIRECTED, #6 TAB TAKE 500 MG (2 TABS) THE FIRST DAY THEN 250 MG (1 TAB) DAYS 2-5 Prov:ALEXIS HUBBARD 09/14/18 Benzonatate* (Tessalon Perle*) 100 Mg Capsule, 100 MG PO Q8H PRN for COUGH, #15 CAP Prov:ALEXIS HUBBARD 09/14/18 Promethazine HCl/Codeine (Prometh-Codein 6.25-10 mg/5 ml) 5 Ml Syrup, 5 ML PO QHS PRN for COUGH, #60 ML Prov:PETER RODRIGUEZ MD 07/03/18 Albuterol Sulfate* (Proair HFA*) 8.5 Gm Hfa.aer.ad, 2 PUFF INH Q4, #1 INHALER Prov:PETER RODRIGUEZ MD 07/03/18 Montelukast Sodium* (Singulair*) 10 Mg Tablet, 10 MG PO QHS, #30 TAB Prov:PETER RODRIGUEZ MD 07/03/18 Prednisone* (Prednisone*) 20 Mg Tab, 60 MG PO DAILY for 5 Days, TAB Prov:PETER RODRIGUEZ MD 07/03/18 Ipratropium-Albuterol (Ipratropium-Albuterol) 0.5-3 Mg/3 Ml Ampul.neb, 3 ML INH Q4H PRN for SHORTNESS OF BREATH, #30 AMP Prov:PETER RODRIGUEZ MD 07/03/18 Nebulizer (Compact Compressor Nebulizer) 1 Each Each, EACH MC Q4H WHILE AWAKE, #1 Prov:PETER RODRIGUEZ MD 07/03/18 Prednisone* (Prednisone*) 20 Mg Tab, 40 MG PO DAILY for 4 Days, TAB Prov:PETER RODRIGUEZ MD 06/08/18 Amoxicillin* (Amoxicillin*) 500 Mg Cap, 500 MG PO TID for 7 Days, CAP Prov:PETER RODRIGUEZ MD 06/08/18 Dextromethorphan Hb-Promethazine Hcl* (Promethazine DM* Syrup) 473 Ml Syrup, 5 ML PO Q6 PRN for COUGH for 4 Days, ML Prov:DAVE SAMANO MD 03/09/18 Albuterol Sulfate* (Ventolin HFA*) 18 Gm Hfa.aer.ad, 2 PUFF INHALATION Q4H, #1 INHALER Prov:DAVE SAMANO MD 03/09/18 Prednisone* (Prednisone*) 20 Mg Tab, 40 MG PO DAILY for 4 Days, TAB Start March 10, 2018 Prov:ADVE SAMANO MD 03/09/18 Blood Sugar Diagnostic (Accu-Chek Guide Test Strip) 1 Each Strip, 1 EACH MC DAILY, #100 STRIP Prov:YURIY MARQUIS PA-C 01/06/18 Cetirizine Hcl* (Zyrtec*) 10 Mg Capsule, 10 MG PO DAILY, #14 TAB.CHEW Prov:YURIY MARQUIS PA-C 01/06/18 Guaifenesin-Dextromethorphan* (Robitussin* DM) 100MG/10MG/5ML Syrup, 10 ML PO Q6H PRN for COUGH for 5 Days, ML Prov:YURIY MARQUIS PA-C 01/06/18 Prednisone* (Prednisone*) 20 Mg Tab, 40 MG PO DAILY for 4 Days, TAB Prov:YURIY MARQUIS PA-C 01/06/18 Benzocaine/Menthol* (Cepacol* Sore Throat Lozenges) 1 Each Lozenge, 1 EACH MM q2h PRN for SORE THROAT, #20 LOZENGE Prov:RUI MATUTE HEMSTITCHER 12/13/17 Guaifenesin* (Tussin*) 100 Mg/5 Ml Syrup, 100 MG PO Q6 PRN for COUGH, #120 ML Prov:RUI MATUTE. HEMSTITCHER 12/13/17 Sodium Chloride (Saline Nasal Mist) 126 Ml Mist, 2 SPRAY NASAL Q2H PRN for NASAL CONGESTION, #1 BOTTLE Prov:RUI MATUTE HEMSTITCHER 12/13/17 Benzonatate* (Tessalon Perle*) 100 Mg Capsule, 100 MG PO Q8H PRN for COUGH, #14 CAP Prov:ALEXIS HUBBARD 11/09/17 Albuterol Sulfate* (Albuterol Sulfate* Neb) 0.083%-3 Ml Neb, 2.5 MG NEB Q4 PRN for SHORTNESS OF BREATH, #30 EA Prov:ALEXIS HUBBARD 11/09/17 Albuterol Sulfate* (Proair HFA*) 8.5 Gm Hfa.aer.ad, 2 PUFF INH Q4H PRN for WHEEZING AND SOB, #1 INHALER Prov:ALEXIS HUBBARD 11/09/17 Azithromycin* (Zithromax*) 250 Mg Tablet, 250 MG PO .PENELOPECK DIRECTED, #6 TAB TAKE 500 MG (2 TABS) THE FIRST DAY THEN 250 MG (1 TAB) DAYS 2-5 Prov:ALEXIS HUBBARD 11/09/17 Dextromethorphan Hb-Promethazine Hcl* (Promethazine DM* Syrup) 473 Ml Syrup, 5 ML PO Q6 PRN for COUGH, #100 ML Prov:BILLIE MOORE-C 09/21/17 Benzonatate* (Tessalon Perle*) 100 Mg Capsule, 100 MG PO Q8H PRN for COUGH, #30 CAP Prov:BILLIE MOORE PA-C 09/21/17 Albuterol Sulfate* (Proair HFA*) 8.5 Gm Hfa.aer.ad, 2 PUFF INH Q4, #1 INHALER Prov:BILLIE MOORE PA-C 09/21/17 Prednisone* (Prednisone*) 20 Mg Tab, 40 MG PO DAILY for 4 Days, TAB Prov:BILLIE MOORE-C 09/21/17 Albuterol Sulfate* (Proair HFA*) 8.5 Gm Hfa.aer.ad, 2 PUFF INH Q4, #1 INHALER Prov:EMILIANO CARRILLO-C 05/13/17 Prednisone* (Prednisone*) 20 Mg Tab, 60 MG PO DAILY for 4 Days, TAB Prov:EMILIANO CARRILLO PA-C 05/13/17 Cetirizine Hcl* (Zyrtec*) 10 Mg Capsule, 10 MG PO DAILY, #30 TAB.CHEW Prov:LOLIS AUGUSTE NP 05/11/17 Acetaminophen* (Tylophen*) 500 Mg Capsule, 1 CAP PO Q6H PRN for PAIN AND OR ELEVATED TEMP, #20 CAP Prov:LOLIS AUGUSTE HEMSTITCHER 05/11/17 Ibuprofen* (Motrin*) 600 Mg Tab, 600 MG PO Q6H PRN for PAIN AND OR ELEVATED TEMP, #30 TAB Prov:LOLIS AUGUSTE HEMSTITCHER 05/11/17 Azithromycin* (Zithromax*) 250 Mg Tablet, 250 MG PO .VINCENZO DIRECTED, #6 TAB TAKE 500 MG (2 TABS) THE FIRST DAY THEN 250 MG (1 TAB) DAYS 2-5 Prov:LOLIS AUGUSTE NP 05/11/17 Benzonatate* (Tessalon Perle*) 100 Mg Capsule, 100 MG PO Q8H PRN for COUGH, #20 CAP Prov:LOLIS AUGUSTE HEMSTITCHER 05/11/17 Albuterol Sulfate* (Proair HFA*) 8.5 Gm Hfa.aer.ad, 2 PUFF INH Q4H PRN for WHEEZING AND SOB, #1 INHALER Prov:LOLIS AUGUSTE NP 05/11/17 Methylprednisolone* (Medrol* DOSE PACK) 4 Mg/Dose-Pack Tab.ds.pk, 4 MG PO . DIRECTED for 6 Days, PACKET Prov:ROSSI STOVALL 03/27/17 Azithromycin* (Zithromax*) 250 Mg Tablet, 250 MG PO .ZPACK DIRECTED, #6 TAB TAKE 500 MG (2 TABS) THE FIRST DAY THEN 250 MG (1 TAB) DAYS 2-5 Prov:ROSSI STOVALL 03/27/17 Cetirizine Hcl* (Zyrtec*) 10 Mg Capsule, 10 MG PO DAILY, #15 TAB.CHEW Prov:DAVE SAMANO MD 03/08/17 Albuterol Sulfate* (Proair HFA*) 8.5 Gm Hfa.aer.ad, 2 PUFF INH Q4, #1 INHALER Prov:DAVE SAMANO MD 03/08/17 Prednisone* (Prednisone*) 20 Mg Tab, 40 MG PO DAILY for 4 Days, TAB Start March 09, 2017 Prov:DAVE SAMANO MD 03/08/17 Albuterol Sulfate* (Proair HFA*) 8.5 Gm Hfa.aer.ad, 2 PUFF INH Q4, #1 INHALER Prov:EMILIANO CARRILLO PA-C 01/11/17 Prednisone* (Prednisone*) 20 Mg Tab, 60 MG PO DAILY for 4 Days, TAB Prov:EMILIANO CARRILLO PA-C 01/11/17 Salmeterol Xinaf/Fluticasone* (Advair*) 250-50 Diskus Inhaler, 1 INH INHALATION BID, #1 INHALER Prov:YURIY MARQUIS PA-C 11/29/16 Albuterol Sulfate* (Proair HFA*) 8.5 Gm Hfa.aer.ad, 2 PUFF INH Q4, #1 INHALER Prov:YURIY MARQUIS PA-C 8/29/17 Hydrocodone Bit/Homatrop Me-Br (Tussigon 5-1.5 mg Tablet) 1 Each Tablet, 1 EACH PO TID PRN for cough/pain, #10 TAB Prov:INOCENTE SNELL MD 09/18/16 Albuterol Sulfate* (Ventolin HFA*) 18 Gm Hfa.aer.ad, 2 PUFF INHALATION Q4H, #1 INHALER Prov:INOCENTE SNELL MD 09/18/16 Prednisone* (Prednisone*) 20 Mg Tab, 40 MG PO DAILY for 5 Days, TAB Prov:INOCENTE SNELL MD 09/18/16 Albuterol Sulfate* (Proair HFA*) 8.5 Gm Hfa.aer.ad, 2 PUFF INH Q4, #1 INHALER Prov:ROSSI STOVALL 05/05/16 Dextromethorphan Hb-Promethazine Hcl (Promethazine DM Syrup) 473 Ml Syrup, 10 ML PO Q6H PRN for COUGH, #4 OZ Prov:ROSSI STOVALL 05/05/16 Methylprednisolone* (Medrol* DOSE PACK) 4 Mg/Dose-Pack Tab.ds.pk, 4 MG PO . DIRECTED for 6 Days, PACKET Prov:ROSSI STOVALL 05/05/16 Azithromycin* (Zithromax*) 250 Mg Tablet, 250 MG PO .ZPACK DIRECTED, #6 TAB TAKE 500 MG (2 TABS) THE FIRST DAY THEN 250 MG (1 TAB) DAYS 2-5 Prov:ROSSI STOVALL 05/05/16 Benzonatate* (Benzonatate*) 100 Mg Capsule, 100 MG PO TID PRN for COUGH for 20 Days, CAP Prov:MURALI BURTON PA-C 04/17/16 Albuterol Sulfate* (Ventolin HFA*) 18 Gm Hfa.aer.ad, 2 PUFF INHALATION Q4H, #1 INHALER Prov:MURALI BURTON PA-C 04/17/16 Prednisone* (Prednisone*) 20 Mg Tab, 40 MG PO DAILY for 5 Days, #10 TAB Prov:MURALI BURTON PA-C 04/17/16 Ibuprofen* (Ibuprofen*) 600 Mg Tablet, 600 MG PO Q8 for PAIN AND/OR INFLAMMATION, #30 TAB Prov:CHIP MCNEILL MD 03/02/16 Prednisone* (Prednisone*) 20 Mg Tab, 40 MG PO DAILY for 4 Days, TAB Prov:CHIP MCNEILL MD 03/02/16 Albuterol Sulfate* (Proair HFA*) 8.5 Gm Hfa.aer.ad, 2 PUFF INH Q6H PRN for WHEEZING AND SOB, #1 INHALER Prov:CHIP MCNEILL MD 03/02/16 Reported Medications [none] Unknown Strength No Conflict Check 05/10/17 Metformin* (Glucophage*) 1,000 Mg Tablet, 1000 MG PO BID, TAB 11/30/14 Allergies Allergies: Coded Allergies: No Known Allergy (Unverified , 12/13/17) PMhx/Soc History of Surgery: Yes (c section 1982) Anesthesia Reaction: No Hx Neurological Disorder: No Hx Cardiac Disorders: Yes (htn, dm) Hx Psychiatric Problems: No Hx Miscellaneous Medical Probl: Yes (dm) Hx Alcohol Use: No Hx Substance Use: No Hx Tobacco Use: No Physical Exam Vitals Vital Signs Date Temp Pulse Resp B/P (MAP) Pulse Ox O2 O2 Flow FiO2 Time Delivery Rate 09/14/18 86 22 98 21 05:24 09/14/18 97.6 104 20 141/72 96 04:49 (95) Physical Exam Head: Atraumatic Eyes: Normal Conjunctiva ENT: Normal External Ears, Nose and Mouth. Bilateral ears: TMs are not erythematous. No bleeding. No discharge. No hearing loss. No mastoid tenderness. Nose: There is no frontal or maxillary sinus tenderness palpation. Throat: Uvula is in midline and nondisplaced. Tonsils are +1 bilaterally without redness and without exudates. Tolerating secretions. Patent airway. Speaks full and clear sentences. No tripoding. Neck: Full range of motion. No meningismus. No nuchal rigidity. No signs of meningeal irritation. Resp: Wheezing bilaterally. No accessory muscle use in breathing. Cardio: Regular rate and rhythm, no murmurs Abd: Soft, non tender, non distended. Normal bowel sounds. Negative Valero sign. Skin: No petechiae or rashes. Color appears normal for ethnicity. No skin tenting. No signs of severe dehydration. Back: No midline or flank tenderness Ext: No cyanosis, or edema Neur: Awake and alert. No neurological deficits. Psych: Normal Mood and Affect Results 24 hrs Current Medications Medications Dose Sig/Molly Start Time Status Last (Trade) Ordered Route PRN Stop Time Admin Dose Reason Admin Albuterol 5 mg ONCE STAT 09/14/18 DC 09/14/18 (Proventil HHN 05:07 05:24 0.083% (Neb)) 09/14/18 05:08 Ipratropium 0.5 mg ONCE ONCE 09/14/18 DC 09/14/18 [place] HHN 05:30 05:23 (Atrovent 09/14/18 05:31 0.02% (Neb)) 10 mg ONCE ONCE 09/14/18 DC 09/14/18 Dexamethasone IM 05:30 05:14 (Decadron) 09/14/18 05:31 Procedures/MDM Diagnostic tests: EKG: Normal sinus rhythm with a ventricular rate of 81 bpm. No STEMI. Read by supervising physician. Treatment: Dexamethasone IM. Albuterol and Atrovent breathing treatment. Re-evaluation: No accessory muscle use in breathing. Lung sounds are clear to auscultation. Stated that she feels much better at this time and that she is ready to go home. Differential diagnosis I have low suspicion for sepsis, acute microinfarction, acute coronary syndrome, bronchospasm, pneumonia, airway obstruction. Final diagnosis: Asthma exacerbation. Asthmatic bronchitis. Prescription: Pro-air. Tessalon Perles. Azithromycin. Follow-up with PCP in the next 24-48 hours. Come back here in the emergency department for any new symptoms or any worsening symptoms. All questions and concerns were answered. Patient and family members verbalized understanding and agreed with plan of care. Hemodynamically stable on discharge. Departure Diagnosis: Primary Impression: Asthma exacerbation Additional Impression: Asthmatic bronchitis Condition: Stable Additional Instructions: Follow-up with PCP in the next 24-48 hours. Come back here in the emergency department for any new symptoms or any worsening symptoms. ALEXIS HUBBARD Sep 14, 2018 05:07
[2018-09-14] MEDS ORDERED: ALBU8.5H8 INH (05:12)
[2018-09-14] MEDS ORDERED: AZIT250T PO (05:12)
[2018-09-14] MEDS ORDERED: BENZ-6 PO (05:12)
[2018-09-14] MEDS ORDERED: DEXAMETHASONE 10 MG/ML 1 ML INJ IM ONE (05:30)
[2018-09-14] MEDS ORDERED: IPRATROPIUM (NEB) 0.5 MG/2.5 ML AMP HHN ONE (05:30)
== END 2018-09-14 06:05 | disposition home or self-care (01) ==
LOC: FTE 04:49
DX: J45.901 Unspecified asthma with (acute) exacerbation (principal); I10 Essential (primary) hypertension; E11.9 Type 2 diabetes mellitus without complications; Z79.84 Long term (current) use of oral hypoglycemic drugs
CPT/HCPCS: 93005; 94664; 96372; J1100; Z7502; Z7610

== ENCOUNTER 2018-10-07 12:48 | Emergency (ER) | payer MEDICAID ==
[~2018-10-07] VITALS: Ht 152.4 cm; Wt 131.8 kg
[2018-10-07 12:50] VITALS: Ht 152.4 cm; Wt 131.8 kg
[2018-10-07] MEDS ORDERED: METHYLPREDNISOLONE 125 MG INJ IV STA (13:14)
[2018-10-07] MEDS ORDERED: IPRATROPIUM (NEB) 0.5 MG/2.5 ML AMP NEB STA (13:14)
[2018-10-07] MEDS ORDERED: ALBUTEROL 0.083% (NEB) 2.5 MG/3 ML AMP NEB STA (13:14)
--- NOTE | 2018-10-07 13:30 | ERD ---
ER Documentation Chief Complaint Chief Complaint COUGH, WHEEZING, SOB, HX OF ASTHMA HPI 52-year-old female history of asthma presents with complaint of wheezing and cough for the past month. Patient states that she was here a month ago and was given a breathing treatment and her wheezing improved but it never fully resolved. States that is gotten acutely worse over the last couple days. denies SOB, dyspnea, lower extremity swelling or pain, pain on exertion, diaphoresis, nausea, radiating of pain, recent travel or immobilization, hemoptysis, dsypnea, history of clotting disorder, syncope, fever. ROS All systems reviewed and are negative except as per history of present illness. Medications Home Meds Active Scripts Amoxicillin* (Amoxicillin*) 500 Mg Cap, 500 MG PO TID for 10 Days, CAP Prov:KADIXENACARLOSMURALI 10/07/18 Azithromycin* (Zithromax*) 250 Mg Tablet, 250 MG PO .ZPACK DIRECTED, #6 TAB TAKE 500 MG (2 TABS) THE FIRST DAY THEN 250 MG (1 TAB) DAYS 2-5 Prov:KADIMURALI RICHARDSON 10/07/18 Beclomethasone Dipropionate (Qvar Redihaler (40 MCG)) 10.6 Gm Hfa.aeroba, 10.6 GM IH Q12, #1 INH Prov:KADIXENACARLOSMURALI 10/07/18 Prednisone* (Prednisone*) 20 Mg Tab, 60 MG PO DAILY for 6 Days, TAB Prov:KADIXENACARLOSMURALI 10/07/18 Albuterol Sulfate* (Proair HFA*) 8.5 Gm Hfa.aer.ad, 2 PUFF INH Q4H PRN for WHEEZING AND SOB, #1 INHALER Prov:PASILAALEXIS SARGENT F 09/14/18 Azithromycin* (Zithromax*) 250 Mg Tablet, 250 MG PO .ZPACK DIRECTED, #6 TAB TAKE 500 MG (2 TABS) THE FIRST DAY THEN 250 MG (1 TAB) DAYS 2-5 Prov:PASILAALEXIS SARGENT F 09/14/18 Benzonatate* (Tessalon Perle*) 100 Mg Capsule, 100 MG PO Q8H PRN for COUGH, #15 CAP Prov:PASILABANALEXIS F 09/14/18 Promethazine HCl/Codeine (Prometh-Codein 6.25-10 mg/5 ml) 5 Ml Syrup, 5 ML PO QHS PRN for COUGH, #60 ML Prov:PETER RODRIGUEZ MD 07/03/18 Albuterol Sulfate* (Proair HFA*) 8.5 Gm Hfa.aer.ad, 2 PUFF INH Q4, #1 INHALER Prov:PETER RODRIGUEZ MD 07/03/18 Montelukast Sodium* (Singulair*) 10 Mg Tablet, 10 MG PO QHS, #30 TAB Prov:PETER RODRIGUEZ MD 07/03/18 Prednisone* (Prednisone*) 20 Mg Tab, 60 MG PO DAILY for 5 Days, TAB Prov:PETER RODRIGUEZ MD 07/03/18 Ipratropium-Albuterol (Ipratropium-Albuterol) 0.5-3 Mg/3 Ml Ampul.neb, 3 ML INH Q4H PRN for SHORTNESS OF BREATH, #30 AMP Prov:PETER RODRIGUEZ MD 07/03/18 Nebulizer (Compact Compressor Nebulizer) 1 Each Each, EACH MC Q4H WHILE AWAKE, #1 Prov:PETER RODRIGUEZ MD 07/03/18 Prednisone* (Prednisone*) 20 Mg Tab, 40 MG PO DAILY for 4 Days, TAB Prov:PETER RODRIGUEZ MD 06/08/18 Amoxicillin* (Amoxicillin*) 500 Mg Cap, 500 MG PO TID for 7 Days, CAP Prov:PETER RODRIGUEZ MD 06/08/18 Dextromethorphan Hb-Promethazine Hcl* (Promethazine DM* Syrup) 473 Ml Syrup, 5 ML PO Q6 PRN for COUGH for 4 Days, ML Prov:DAVE SAMANO MD 03/09/18 Albuterol Sulfate* (Ventolin HFA*) 18 Gm Hfa.aer.ad, 2 PUFF INHALATION Q4H, #1 INHALER Prov:DAVE SAMANO MD 03/09/18 Prednisone* (Prednisone*) 20 Mg Tab, 40 MG PO DAILY for 4 Days, TAB Start March 10, 2018 Prov:DAVE SAMANO MD 03/09/18 Blood Sugar Diagnostic (Accu-Chek Guide Test Strip) 1 Each Strip, 1 EACH MC DAILY, #100 STRIP Prov:YURIY MARQUIS-C 01/06/18 Cetirizine Hcl* (Zyrtec*) 10 Mg Capsule, 10 MG PO DAILY, #14 TAB.CHEW Prov:YURIY MARQUIS-C 01/06/18 Guaifenesin-Dextromethorphan* (Robitussin* DM) 100MG/10MG/5ML Syrup, 10 ML PO Q6H PRN for COUGH for 5 Days, ML Prov:YURIY MARQUIS-C 01/06/18 Prednisone* (Prednisone*) 20 Mg Tab, 40 MG PO DAILY for 4 Days, TAB Prov:YURIY MARQUIS-C 01/06/18 Benzocaine/Menthol* (Cepacol* Sore Throat Lozenges) 1 Each Lozenge, 1 EACH MM q2h PRN for SORE THROAT, #20 LOZENGE Prov:RUI MATUTE. OFFICE SYSTEMS TECHNOLOGY INSTRUCTOR 12/13/17 Guaifenesin* (Tussin*) 100 Mg/5 Ml Syrup, 100 MG PO Q6 PRN for COUGH, #120 ML Prov:RUI MATUTE. OFFICE SYSTEMS TECHNOLOGY INSTRUCTOR 12/13/17 Sodium Chloride (Saline Nasal Mist) 126 Ml Mist, 2 SPRAY NASAL Q2H PRN for NASAL CONGESTION, #1 BOTTLE Prov:RUI MATUTE. OFFICE SYSTEMS TECHNOLOGY INSTRUCTOR 12/13/17 Benzonatate* (Tessalon Perle*) 100 Mg Capsule, 100 MG PO Q8H PRN for COUGH, #14 CAP Prov:ALEXIS HUBBARD 11/09/17 Albuterol Sulfate* (Albuterol Sulfate* Neb) 0.083%-3 Ml Neb, 2.5 MG NEB Q4 PRN for SHORTNESS OF BREATH, #30 EA Prov:HATTIEILAALEXIS SARGENT 11/09/17 Albuterol Sulfate* (Proair HFA*) 8.5 Gm Hfa.aer.ad, 2 PUFF INH Q4H PRN for WHEEZING AND SOB, #1 INHALER Prov:ALEXIS HUBBARD 11/09/17 Azithromycin* (Zithromax*) 250 Mg Tablet, 250 MG PO .ZPACK DIRECTED, #6 TAB TAKE 500 MG (2 TABS) THE FIRST DAY THEN 250 MG (1 TAB) DAYS 2-5 Prov:ALEXIS HUBBARD 11/09/17 Dextromethorphan Hb-Promethazine Hcl* (Promethazine DM* Syrup) 473 Ml Syrup, 5 ML PO Q6 PRN for COUGH, #100 ML Prov:BILLIE MOOREC 09/21/17 Benzonatate* (Tessalon Perle*) 100 Mg Capsule, 100 MG PO Q8H PRN for COUGH, #30 CAP Prov:BILLIE MOOREC 09/21/17 Albuterol Sulfate* (Proair HFA*) 8.5 Gm Hfa.aer.ad, 2 PUFF INH Q4, #1 INHALER Prov:BILLIE MOOREC 09/21/17 Prednisone* (Prednisone*) 20 Mg Tab, 40 MG PO DAILY for 4 Days, TAB Prov:BILLIE MOOREC 09/21/17 Albuterol Sulfate* (Proair HFA*) 8.5 Gm Hfa.aer.ad, 2 PUFF INH Q4, #1 INHALER Prov:EMILIANO CARRILLO PA-C 05/13/17 Prednisone* (Prednisone*) 20 Mg Tab, 60 MG PO DAILY for 4 Days, TAB Prov:EMILIANO CARRILLOC 05/13/17 Cetirizine Hcl* (Zyrtec*) 10 Mg Capsule, 10 MG PO DAILY, #30 TAB.CHEW Prov:LOLIS AUGUSTE NP 05/11/17 Acetaminophen* (Tylophen*) 500 Mg Capsule, 1 CAP PO Q6H PRN for PAIN AND OR ELEVATED TEMP, #20 CAP Prov:LOLIS AUGUSTE [employer]ICE SYSTEMS TECHNOLOGY INSTRUCTOR 05/11/17 Ibuprofen* (Motrin*) 600 Mg Tab, 600 MG PO Q6H PRN for PAIN AND OR ELEVATED TEMP, #30 TAB Prov:LOLIS AUGUSTE [employer]ICE SYSTEMS TECHNOLOGY INSTRUCTOR 05/11/17 Azithromycin* (Zithromax*) 250 Mg Tablet, 250 MG PO .VINCENZO DIRECTED, #6 TAB TAKE 500 MG (2 TABS) THE FIRST DAY THEN 250 MG (1 TAB) DAYS 2-5 Prov:LOLIS AUGUSTE. OFFICE SYSTEMS TECHNOLOGY INSTRUCTOR 05/11/17 Benzonatate* (Tessalon Perle*) 100 Mg Capsule, 100 MG PO Q8H PRN for COUGH, #20 CAP Prov:LOLIS AUGUSTE. OFFICE SYSTEMS TECHNOLOGY INSTRUCTOR 05/11/17 Albuterol Sulfate* (Proair HFA*) 8.5 Gm Hfa.aer.ad, 2 PUFF INH Q4H PRN for WHEEZING AND SOB, #1 INHALER Prov:LOLIS AUGUSTE. OFFICE SYSTEMS TECHNOLOGY INSTRUCTOR 05/11/17 Methylprednisolone* (Medrol* DOSE PACK) 4 Mg/Dose-Pack Tab.ds.pk, 4 MG PO . DIRECTED for 6 Days, PACKET Prov:ROSSI STOVALL 03/27/17 Azithromycin* (Zithromax*) 250 Mg Tablet, 250 MG PO .ZPACK DIRECTED, #6 TAB TAKE 500 MG (2 TABS) THE FIRST DAY THEN 250 MG (1 TAB) DAYS 2-5 Prov:ROSSI STOVALL 03/27/17 Cetirizine Hcl* (Zyrtec*) 10 Mg Capsule, 10 MG PO DAILY, #15 TAB.CHEW Prov:DAVE SAMANO MD 03/08/17 Albuterol Sulfate* (Proair HFA*) 8.5 Gm Hfa.aer.ad, 2 PUFF INH Q4, #1 INHALER Prov:DAVE SAMANO MD 03/08/17 Prednisone* (Prednisone*) 20 Mg Tab, 40 MG PO DAILY for 4 Days, TAB Start March 09, 2017 Prov:DAVE SAMANO MD 03/08/17 Albuterol Sulfate* (Proair HFA*) 8.5 Gm Hfa.aer.ad, 2 PUFF INH Q4, #1 INHALER Prov:EMILIANO CARRILLO PA-C 01/11/17 Prednisone* (Prednisone*) 20 Mg Tab, 60 MG PO DAILY for 4 Days, TAB Prov:EMILIANO CARRILLO PA-C 01/11/17 Salmeterol Xinaf/Fluticasone* (Advair*) 250-50 Diskus Inhaler, 1 INH INHALATION BID, #1 INHALER Prov:YURIY MARQUIS PA-C 11/29/16 Albuterol Sulfate* (Proair HFA*) 8.5 Gm Hfa.aer.ad, 2 PUFF INH Q4, #1 INHALER Prov:YURIY MARQUIS PA-C 11/29/16 Hydrocodone Bit/Homatrop Me-Br (Tussigon 5-1.5 mg Tablet) 1 Each Tablet, 1 EACH PO TID PRN for cough/pain, #10 TAB Prov:INOCENTE SNELL MD 09/18/16 Albuterol Sulfate* (Ventolin HFA*) 18 Gm Hfa.aer.ad, 2 PUFF INHALATION Q4H, #1 INHALER Prov:INOCENTE SNELL MD 09/18/16 Prednisone* (Prednisone*) 20 Mg Tab, 40 MG PO DAILY for 5 Days, TAB Prov:INOCENTE SNELL MD 09/18/16 Albuterol Sulfate* (Proair HFA*) 8.5 Gm Hfa.aer.ad, 2 PUFF INH Q4, #1 INHALER Prov:ROSSI STOVALL 05/05/16 Dextromethorphan Hb-Promethazine Hcl (Promethazine DM Syrup) 473 Ml Syrup, 10 ML PO Q6H PRN for COUGH, #4 OZ Prov:ROSSI STOVALL 05/05/16 Methylprednisolone* (Medrol* DOSE PACK) 4 Mg/Dose-Pack Tab.ds.pk, 4 MG PO . DIRECTED for 6 Days, PACKET Prov:ROSSI STOVALL 05/05/16 Azithromycin* (Zithromax*) 250 Mg Tablet, 250 MG PO .ZPACK DIRECTED, #6 TAB TAKE 500 MG (2 TABS) THE FIRST DAY THEN 250 MG (1 TAB) DAYS 2-5 Prov:ROSSI STOVALL 05/05/16 Benzonatate* (Benzonatate*) 100 Mg Capsule, 100 MG PO TID PRN for COUGH for 20 Days, CAP Prov:MURALI BURTON PA-C 04/17/16 Albuterol Sulfate* (Ventolin HFA*) 18 Gm Hfa.aer.ad, 2 PUFF INHALATION Q4H, #1 INHALER Prov:MURALI BURTON PA-C 04/17/16 Prednisone* (Prednisone*) 20 Mg Tab, 40 MG PO DAILY for 5 Days, #10 TAB Prov:MURALI BURTON PA-C 04/17/16 Ibuprofen* (Ibuprofen*) 600 Mg Tablet, 600 MG PO Q8 for PAIN AND/OR INFLAMMATION, #30 TAB Prov:CHIP MCNEILL MD 03/02/16 Prednisone* (Prednisone*) 20 Mg Tab, 40 MG PO DAILY for 4 Days, TAB Prov:CHIP MCNEILL MD 03/02/16 Albuterol Sulfate* (Proair HFA*) 8.5 Gm Hfa.aer.ad, 2 PUFF INH Q6H PRN for WH EEZING AND SOB, #1 INHALER Prov:CHIP MCNEILL MD 03/02/16 Reported Medications [none] Unknown Strength No Conflict Check 05/10/17 Metformin* (Glucophage*) 1,000 Mg Tablet, 1000 MG PO BID, TAB 11/30/14 Allergies Allergies: Coded Allergies: No Known Allergy (Unverified , 10/07/18) PMhx/Soc History of Surgery: Yes ( (1982)) Anesthesia Reaction: No Hx Neurological Disorder: No Hx Respiratory Disorders: Yes (Asthma) Hx Cardiac Disorders: Yes (HTN) Hx Psychiatric Problems: No Hx Miscellaneous Medical Probl: No Hx Alcohol Use: No Hx Substance Use: No Hx Tobacco Use: No Smoking Status: Never smoker FmHx Family History: No diabetes, No coronary disease, No other Physical Exam Vitals Vital Signs Date Temp Pulse Resp B/P (MAP) Pulse Ox O2 O2 Flow FiO2 Time Delivery Rate 10/07/18 98.3 109 18 125/65 96 Room Air 14:32 (85) 10/07/18 101 20 100 21 13:35 10/07/18 98.4 101 19 161/88 97 12:50 (112) Physical Exam Const: No acute distress Head: Atraumatic Eyes: Normal Conjunctiva ENT: Normal External Ears, Nose and Mouth. Neck: Full range of motion. No meningismus. Resp: Wheezing heard in lung martínez diffusely. Equal breath sounds. Cardio: Regular rate and rhythm, no murmurs Abd: Soft, non tender, non distended. Normal bowel sounds Skin: No petechiae or rashes Back: No midline or flank tenderness Ext: No cyanosis, or edema Neur: Awake and alert Psych: Normal Mood and Affect Results 24 hrs Current Medications Medications Dose Sig/Molly Start Time Status Last (Trade) Ordered Route PRN Stop Time Admin Dose Reason Admin Albuterol 7.5 mg ONCE STAT 10/07/18 DC 10/07/18 (Proventil NEB 13:14 10/07/18 13:31 0.083% (Neb)) 13:16 Ipratropium 0.5 mg ONCE STAT 10/07/18 DC 10/07/18 [place] NEB 13:14 10/07/18 13:31 (Atrovent 13:16 0.02% (Neb)) 125 mg ONCE STAT 10/07/18 DC Methylprednis IV 13:14 10/07/18 olone Sodium 13:34 Succinate (Solu-Medrol) Prednisone 60 mg ONCE ONCE 10/07/18 DC 10/07/18 (Prednisone) PO 14:00 10/07/18 13:42 14:01 Procedures/MDM DIAGNOSTIC IMAGING REPORT Patient: GLAE BAY : 1965 Age: 52 Sex: F MR #: [id number] DOS: 10/07/18 1314 Ordering MD: MURALI CORBETT Location: [facility] Room/Bed: PROCEDURE: XR Chest. CLINICAL INDICATION: Asthma TECHNIQUE: Single portable view of the chest was obtained COMPARISON: CR CHEST 04/17/2016 FINDINGS: The heart is enlarged. There is a mild patchy right lower lobe infiltrate. There is no pleural effusion or pneumothorax. RPTAT: AA IMPRESSION: Mild Cardiomegaly. Mild patchy right lower lobe infiltrate. .Boone Rosen MD, MD Date Time Electronically viewed and signed by .Boone Rosne MD, MD on 10/07/2018 14:03 .S/ CC: MURALI CORBETT [phone] ER Course: Patient given treatment with nebulized albuterol, ipatropium, and s teroids. MDM: Given the length of patient's cough and lung sounds are on exam decision was made to do a chest x-ray. X-ray was positive for pneumonia. Patient will be treated with azithromycin as well as amoxicillin per A outpatient antibiotic guidelines as she is a diabetic. I have low suspicion for status asthmaticus due to patient improvment after breathing treatment. I have low suspicion for acute CHF, aspirated foreign body, pneumothorax, PE, respiratory distress, or other mergent condition based on exam and patient history. In addition, patient does not meet Wells score criteria for D-Dimer. Presentation consistent with asthma exacerbation for which patient was given breathing treatment and steroids in ER. After breathing treatment was finished, patients vitals and exam were WNL and patient stated they felt much better. Patient was discharged with rx for alubuterol and a short course of oral steroids. Patient was also advised that asthma has to be managed on outpatient basis by primary care provider. At this time, patient is stable for discharge and outpatient management. I have instructed the patient to follow-up with his/her primary care physician in 1-2 days. I have discussed with the patient the possibility of needing to see a specialist for further workup and imaging studies if symptoms persist. I have instructed the patient to promptly return to the ER for any new or worsening symptoms including but not limited to increased pain, fever, nausea, vomiting, weakness or LOC. The patient and/or family expressed understanding of and agreement with this plan. All questions were answered. Home care instructions were provided. Communication with patient both during the exam and instructions for discharge were performed with using a bonding and composite fabricator . Patient gave verbal confirmation to the practitioner, through the bonding and composite fabricator, that they understood everythign that was being said to them. DISCLAIMER: Inadvertent spelling and grammatical errors are likely due to EHR/dictation software use and do not reflect on the overall quality of patient care. Also, please note that the electronic time recorded on this note does not necessarily reflect the actual time of the patient encounter. Departure Diagnosis: Primary Impression: Asthma exacerbation Additional Impression: Acute pneumonia Condition: Stable CATHIECARLOSMURALI Oct 07, 2018 13:30
[2018-10-07] MEDS ORDERED: PRED20TA PO (13:32)
[2018-10-07] MEDS ORDERED: BECL10.6 IH (13:32)
[2018-10-07] MEDS ORDERED: predniSONE 20 MG TAB PO ONE (14:00)
[2018-10-07] MEDS ORDERED: AZIT250T PO (14:18)
[2018-10-07] MEDS ORDERED: AMOX500C2 PO (14:18)
[2018-10-07 14:32] VITALS: BP 125/65; PULSE 109; RESP 18
== END 2018-10-07 14:34 | disposition home or self-care (01) ==
LOC: FTE 12:48
DX: J45.901 Unspecified asthma with (acute) exacerbation (principal); J18.9 Pneumonia, unspecified organism; R06.02 Shortness of breath
CPT/HCPCS: 71045; 94664; J7512; Z7502; Z7610

== ENCOUNTER 2018-11-24 04:28 | Emergency (ER) | payer MEDICAID ==
[~2018-11-24] VITALS: Ht 152.4 cm; Wt 133.9 kg
[~2018-11-24 04:28] MED LIST changes: +BECL10.6 IH
[2018-11-24 04:32] VITALS: Ht 152.4 cm; Wt 133.9 kg
[2018-11-24] MEDS ORDERED: ALBUTEROL 0.083% (NEB) 2.5 MG/3 ML AMP HHN STA (04:43)
[2018-11-24] MEDS ORDERED: DEXAMETHASONE 10 MG/ML 1 ML INJ IM ONE (05:00)
[2018-11-24] MEDS ORDERED: IPRATROPIUM (NEB) 0.5 MG/2.5 ML AMP HHN ONE (05:00)
[2018-11-24 05:31] VITALS: BP 124/68; PULSE 86; RESP 18
== END 2018-11-24 05:36 | disposition home or self-care (01) ==
LOC: FTE 04:28
DX: J45.901 Unspecified asthma with (acute) exacerbation (principal); E11.9 Type 2 diabetes mellitus without complications; I10 Essential (primary) hypertension; E66.01 Morbid (severe) obesity due to excess calories; Z68.43 Body mass index [BMI] 50.0-59.9, adult
CPT/HCPCS: 94664; 96372; J1100; Z7502; Z7610